=== PATIENT | female | born 1935 | race Caucasian/White ===

== ENCOUNTER → 2023-12-16 11:20 | Outpatient (REF) | payer MEDICARE, SELFPAY ==
[2023-12-16 12:26] LABS: % Basophils 0.7 % (0-2); % Eosinophils 2.3 % (0-6); % Immature Granulocytes 0.4 % (0-0.5); % Lymphocytes 10.1 % (20.5-51.1); % Monocytes 7.4 % (1.7-9.3); % Neutrophils 79.1 % (42.2-75.2); Absolute Basophils 0.1 10^3/uL (0-0.2); Absolute Eosinophils 0.2 10^3/uL (0-0.7); Absolute Lymphocytes 0.9 10^3/uL (1.2-3.4); Absolute Monocytes 0.7 10^3/uL (0.1-0.6); Absolute Neutrophils 7.3 10^3/uL (1.4-6.5); Hematocrit 37.5 % (37.0-47.0); Hemoglobin 12.3 g/dL (12.0-16.0); Mean Corp Hgb Conc. 32.8 g/dL (33.0-37.0); Mean Corpuscular Hgb 28.8 pg (27.0-31.0); Mean Corpuscular Volume 87.8 fL (81.0-99.0); Mean Platelet Volume 9.6 fL (7.4-10.4); Nucleated Red Blood Cells % 0 %; Platelet Count 285 10^3/uL (130-400); Red Blood Cell Count 4.27 10^6/uL (4.20-5.40); Red Cell Dist. Width 14.8 % (11.5-14.5); White Blood Cell Count 9.2 10^3/uL (4.8-10.8)
[2023-12-16 13:07] LABS: Microalbumin, Random Urine 7.1 mg/dl (0.6-1.7)
[2023-12-16 13:19] LABS: ALT (SGPT) 21 U/L (0-35); AST (SGOT) 22 U/L (14-36); Albumin 3.9 g/dl (3.5-5.0); Alkaline Phosphatase 85 U/L (38-126); Blood Urea Nitrogen 33 mg/dl (7-17); Calcium 9.8 mg/dl (8.4-10.2); Carbon Dioxide 27 mmol/L (22-30); Chloride 98 mmol/L (98-107); Glucose 120 mg/dl (70-99); HDL Cholesterol 70 mg/dl; LDL Cholesterol, Calculated 53 mg/dl; Potassium 5.1 mmol/L (3.5-5.1); Sodium 134 mmol/L (135-145); Total Cholesterol 138 mg/dl (50-199); Total Protein 6.5 g/dl (6.3-8.2); Triglyceride 77 mg/dl (10-149); Very Low Density Lipoprotein 15 mg/dl (0-30); eGFR 48.94
[2023-12-16 13:38] LABS: Glycohemoglobin (HgbA1c) 7.6 % (4.0-5.6)
[2023-12-16 13:49] LABS: TSH Reflex To Free T4 3.06 uIU/ml (0.47-4.68)
== END ==
LOC: REG 11:20
PROVIDERS: ATTENDING PHYSICIAN Registered Nurse
DX: I10 Essential (primary) hypertension (principal); E11.21 Type 2 diabetes mellitus with diabetic nephropathy; N18.2 Chronic kidney disease, stage 2 (mild); I48.0 Paroxysmal atrial fibrillation
CPT/HCPCS: 36415; 80053; 80061; 82043; 83036; 84443; 85025

== ENCOUNTER → 2024-01-29 13:33 | Outpatient (REF) | payer MEDICARE, SELFPAY | LOC: DHCBC MAIN 13:33 | PROVIDERS: ATTENDING PHYSICIAN Internal Medicine Cardiovascular Disease | DX: R06.09 Other forms of dyspnea (principal); I25.10 Atherosclerotic heart disease of native coronary artery without angina pectoris; I50.32 Chronic diastolic (congestive) heart failure | CPT/HCPCS: 93306 ==

== ENCOUNTER → 2025-02-16 09:53 | Outpatient (REF) | payer MEDICARE, SELFPAY | LOC: RCS 09:53 | PROVIDERS: ATTENDING PHYSICIAN Internal Medicine Cardiovascular Disease; FAMILY PHYSICIAN Student in an Organized Health Care Education/Training Program | DX: I50.32 Chronic diastolic (congestive) heart failure (principal); I48.0 Paroxysmal atrial fibrillation; I34.2 Nonrheumatic mitral (valve) stenosis; I71.21 Aneurysm of the ascending aorta, without rupture | CPT/HCPCS: 93306 ==

== ENCOUNTER 2025-09-06 20:37 | Inpatient (IN) | payer MEDICARE, SELFPAY ==
[2025-09-06] VITALS (30 sets, daily range): BP systolic 96–129; BP diastolic 60–85; BMI 27.2; BMI 25.7
[2025-09-06 13:45] LABS: Troponin I 0.032 ng/ml
[2025-09-06 13:48] LABS: INR 1.51; PT 18.4 Sec (11.4-14.6)
[2025-09-06 13:49] LABS: APTT 37.0 Sec (23.4-35.0)
[2025-09-06 13:53] LABS: Hematocrit 32.8 % (37.0-47.0); Hemoglobin 10.3 g/dL (12.0-16.0); Mean Corp Hgb Conc. 31.4 g/dL (33.0-37.0); Mean Corpuscular Volume 84.3 fL (81.0-99.0); Nucleated Red Blood Cells % 0 %; Platelet Count 384 10^3/uL (130-400); Red Cell Dist. Width 14.9 % (11.5-14.5)
[2025-09-06 14:19] LABS: ALT (SGPT) 27 U/L (0-35); AST (SGOT) 36 U/L (14-36); Albumin 4.2 g/dl (3.5-5.0); Alkaline Phosphatase 94 U/L (38-126); Blood Urea Nitrogen 36 mg/dl (7-17); Calcium 9.5 mg/dl (8.4-10.2); Carbon Dioxide 24 mmol/L (22-30); Chloride 101 mmol/L (98-107); Estimated Creatinine Clearance 28 ml/min; Glucose 177 mg/dl (70-99); Potassium 5.2 mmol/L (3.5-5.1); Sodium 129 mmol/L (135-145); Total Protein 6.9 g/dl (6.3-8.2); eGFR 39.55
--- NOTE | 2025-09-06 15:28 | ED.GENMED ---
History of Present Illness
<Gerard Easley MD, Resident - Last Filed: 09/06/25 16:10>
General
Chief Complaint: Heart Rate Problem
Source: patient and family
Time Seen by Provider: 09/06/25 15:05
History of Present Illness
History of Present Illness:
Patient is an 89-year-old female with PMH of A-fib on Xarelto and dofetilide who presented to the [place] ED for shortness of breath and dizziness since waking at 7:30 this morning. The shortness of breath and dizziness occurs with exertion.
Patient had similar episode of exertional dizziness and shortness of breath approximately 1 month ago, which self resolved. Patient was referred to the ED by her PCP today. Patient's A-fib is managed by her stitching machine feeder or offbearer, Dr. Harshad Hughes.
Last doses of Xarelto and dofetilide were last night and this morning, respectively. Patient has had prior attempted electrical cardioversions, though they were unsuccessful at keeping the patient out of A-fib. Patient denies having any chest
pain, palpitations, syncope, N/V/D, cough, recent illnesses or sick contacts, fever, or headache. No current symptoms while lying in bed.
Past History
<Gerard Easley MD, Resident - Last Filed: 09/06/25 16:10>
Past History
ED Past Medical History: Arrthythmia, HTN, Hypercholesterolemia, IDDM and Other (osteoarthritis, dizziness)
ED Past Surgical History: Orthopedic (Left total knee, right arthroscopy to remove bone fragments)
Social History
Tobacco: Non-smoker
Alcohol: None
Drug: None
Personal:
Living: alone
Employment: Retired
Review of Systems
<Gerard Easley MD, Resident - Last Filed: 09/06/25 16:10>
Review of Systems
Other source history: family
Constitutional: Denies fever
Respiratory: Reports trouble breathing (Exertional); Denies cough
Cardiac: Denies chest pain, palpitations or syncope
ABD/GI: Denies abdominal pain, nausea, vomiting or diarrhea
Neurological: Reports dizzy; Denies headache
Phy Exam
<Gerard Easley MD, Resident - Last Filed: 09/06/25 16:10>
Physical Exam
Physical Exam:
General: NAD. Conversant.
CV: S1, S2 noted. Irregularly irregular rhythm. Nonpitting edema in lower extremities, chronic per patient.
Pulm: CTAB. No wheezes or crackles.
GI: Soft, nontender. Nondistended.
Neuro: A&O x 3. No focal deficits. CN II through XII grossly intact.
Course
<Gerard Easley MD, Resident - Last Filed: 09/06/25 16:10>
Orders/Labs/Results
Orders:
Orders
09/06/25 12:10
Electrocardiogram (*1) Urgent
Reason for Study: Atrial Fibrillation
EKG- Treatment ONCE
09/06/25 13:04
Complete Blood Count/With Diff Urgent
Comprehensive Metabolic Panel Urgent
NT-proBNP Urgent
PT/INR [Prothrombin Time] Urgent
Is patient on Coumadin/Warfarin?: No
Comment: [email or web address]
PTT Urgent
Troponin I Urgent
09/06/25 15:35
CR Chest - 2 Views Urgent
Comment:
Reason For Exam: SOB
09/06/25 16:20
Propofol [Diprivan] 20 ml .ROUTE .STK-MED
09/06/25 19:18
Troponin I Urgent
Abnormal Lab Results
09/06/25
13:04
WBC 11.0 H 10^3/uL
(4.8-10.8)
RBC 3.89 L 10^6/uL
(4.20-5.40)
Hgb 10.3 L g/dL
(12.0-16.0)
Hct 32.8 L %
(37.0-47.0)
MCH 26.5 L pg
(27.0-31.0)
MCHC 31.4 L g/dL
(33.0-37.0)
RDW 14.9 H %
(11.5-14.5)
Abs Immat Gran (auto) 0.1 H 10^3/uL
(0-0.05)
Absolute Neuts (auto) 9.2 H 10^3/uL
(1.4-6.5)
Absolute Lymphs (auto) 0.9 L 10^3/uL
(1.2-3.4)
Absolute Monos (auto) 0.7 H 10^3/uL
(0.1-0.6)
Neutrophils % 82.9 H %
(42.2-75.2)
Lymphocytes % 7.9 L %
(20.5-51.1)
PT 18.4 H Sec
(11.4-14.6)
APTT 37.0 H Sec
(23.4-35.0)
Sodium 129 L mmol/L
(135-145)
Potassium 5.2 H mmol/L
(3.5-5.1)
BUN 36 H mg/dl
(7-17)
Creatinine 1.3 H mg/dL
(0.6-1.0)
Glucose 177 H mg/dl
(70-99)
09/06/25 13:04
09/06/25 13:04
Vital Signs
Initial and Last Documented VS:
Initial Vital Signs
Temp Pulse Resp BP Pulse Ox
97.8 F 102 16 117/70 98
09/06/25 12:16 09/06/25 12:16 09/06/25 12:16 09/06/25 12:16 09/06/25 12:16
Last Documented Vital Signs
Temp Pulse Resp BP Pulse Ox
97.6 F 66 28 127/75 91
09/06/25 16:31 09/06/25 18:14 09/06/25 18:14 09/06/25 18:47 09/06/25 18:14
<Lana Hyatt, DO - Last Filed: 09/06/25 19:26>
Orders/Labs/Results
Orders:
Orders
09/06/25 12:10
Electrocardiogram (*1) Urgent
Reason for Study: Atrial Fibrillation
EKG- Treatment ONCE
09/06/25 13:04
Complete Blood Count/With Diff Urgent
Comprehensive Metabolic Panel Urgent
NT-proBNP Urgent
PT/INR [Prothrombin Time] Urgent
Is patient on Coumadin/Warfarin?: No
Comment: [email or web address]
PTT Urgent
Troponin I Urgent
09/06/25 15:35
CR Chest - 2 Views Urgent
Comment:
Reason For Exam: SOB
09/06/25 16:20
Propofol [Diprivan] 20 ml .ROUTE .STK-MED
09/06/25 19:18
Troponin I Urgent
Abnormal Lab Results
09/06/25
13:04
WBC 11.0 H 10^3/uL
(4.8-10.8)
RBC 3.89 L 10^6/uL
(4.20-5.40)
Hgb 10.3 L g/dL
(12.0-16.0)
Hct 32.8 L %
(37.0-47.0)
MCH 26.5 L pg
(27.0-31.0)
MCHC 31.4 L g/dL
(33.0-37.0)
RDW 14.9 H %
(11.5-14.5)
Abs Immat Gran (auto) 0.1 H 10^3/uL
(0-0.05)
Absolute Neuts (auto) 9.2 H 10^3/uL
(1.4-6.5)
Absolute Lymphs (auto) 0.9 L 10^3/uL
(1.2-3.4)
Absolute Monos (auto) 0.7 H 10^3/uL
(0.1-0.6)
Neutrophils % 82.9 H %
(42.2-75.2)
Lymphocytes % 7.9 L %
(20.5-51.1)
PT 18.4 H Sec
(11.4-14.6)
APTT 37.0 H Sec
(23.4-35.0)
Sodium 129 L mmol/L
(135-145)
Potassium 5.2 H mmol/L
(3.5-5.1)
BUN 36 H mg/dl
(7-17)
Creatinine 1.3 H mg/dL
(0.6-1.0)
Glucose 177 H mg/dl
(70-99)
09/06/25 13:04
09/06/25 13:04
Vital Signs
Initial and Last Documented VS:
Initial Vital Signs
Temp Pulse Resp BP Pulse Ox
97.8 F 102 16 117/70 98
09/06/25 12:16 09/06/25 12:16 09/06/25 12:16 09/06/25 12:16 09/06/25 12:16
Last Documented Vital Signs
Temp Pulse Resp BP Pulse Ox
97.6 F 66 28 127/75 91
09/06/25 16:31 09/06/25 18:14 09/06/25 18:14 09/06/25 18:47 09/06/25 18:14
Procedures
<Lana Hyatt DO - Last Filed: 09/06/25 19:26>
Cardioversion
Indication:: Afib
Performed by:: Lana Hyatt DO
Synchronized?: Yes
Energy Used: 200 joules
Number of attempts: 1
Successful?: Yes
Complications: none
ASA Risk Score: Class II
Any reaction or bad outcome to prior sedation/anesthesia?: No history of a reaction
Sedation level to be attained: moderate
Chart and allergies reviewed: Yes
Patient reassessed prior to sedation: Yes
Time out completed at (validating right patient & procedure): 16:50
History of difficult intubation: No
Airway free of obstruction: Yes
Patient has a gag reflex: Yes
Patient is able to open mouth: Yes
Patient has no dentures: Yes
Patient has no loose teeth: Yes
Medication administered by Provider during Moderate Sedation: IV Propofol (mg)
Total dose administered: 40
Time drug administered: 16:51
Start Time: 16:51
Stop Time: 17:05
<Gerard Easley MD, Resident - Last Filed: 09/06/25 16:10>
MDM/Problems Addressed
Differential Diagnosis Includes:
A-fib w/ RVR
Atrial flutter
Pulmonary embolism
Heart failure exacerbation
MDM/Problems Addressed:
Assessment: Patient is an 89-year-old female with PMH of A-fib on Xarelto and dofetilide who presented with exertional dyspnea and dizziness. On presentation, EKG shows A-fib with RVR (104 BPM), with labs showing an elevated proBNP (4660), troponin
0.032, mild hyponatremia (129), mild leukocytosis (WBCs 11.0), and mild anemia (Hgb 10.3).
Plan:
#A-fib with RVR
-Diagnostic:
EKG: A-fib with RVR (104)
Labs: CBC, CMP, proBNP, troponin, coags
Imaging: CXR
-Therapeutic:
Cardiology consulted
Plan for attempted electrical cardioversion
<Gerard Easley MD, Resident - Last Filed: 09/06/25 16:10>
*Pulse Oximetry
SaO2: 97
Oxygen Mode of Delivery: Room air
Patient hypoxic: no
*Critical Care Note
Total Time (30-74mins, 75-104mins- exclusive of procedures): Not Applicable
ED Attending Note
<Gerard Easley MD, Resident - Last Filed: 09/06/25 16:10>
-
Portions of this chart may have been created with voice recognition software.� Occasional wrong word or��sound alike� substitutions may have occurred due to the inherent limitations of voice recognition software.
<Lana Hyatt DO - Last Filed: 09/06/25 19:26>
ED Attending Note
Patient seen and examined by attending physician: Yes
I performed the substantive portion of visit, reviewed & personally made and approve the management plan that is documented in note by myself or STEPHAN.: Yes
I performed a history and physical exam of patient and discussed management with resident, I reviewed resident's note and agree with documented findings and plan of care.: Yes
ED Attending Note:
89-year-old female with history of atrial fibrillation on Tikosyn and Xarelto presenting to the emergency department for dizziness and shortness of breath with exertion. Patient reports symptoms started this morning when she woke up. She went to
see her doctor, noted that she was in A-fib and prompted to come to the hospital. Patient also with history of high blood pressure. Patient follows with Dr. Hughes from cardiology. Notes that she has not had any issues with her atrial
fibrillation for several years since she has been on the Tikosyn. Reports history of failed cardioversions. Does note some lower extremity edema, however reports chronic. Denies any pain in her chest or shortness of breath at rest. Denies
additional acute medical complaints
Vital signs on arrival significant for tachycardia. On exam patient is resting comfortably, no acute distress. No increased work of breathing, lungs clear to auscultation. Heart rate is irregularly irregular and EKG confirms atrial fibrillation.
Mild lower extremity edema, symmetric, nonpitting. Suspect the patient symptoms are secondary to her atrial fibrillation. No overt signs of congestive heart failure. Labs obtained prior to my assessment, show mild hyponatremia. Did discuss with
cardiology, recommending cardioversion. Will attempt.
19:00 -patient had successful cardioversion, now in sinus rhythm. EKG however does show some interval changes from prior, with some T wave inversions inferiorly. BNP is also slightly elevated and chest x-ray shows some signs of pulmonary edema.
Concern for possible component of heart failure which could also be contributing to patient's shortness of breath. Will administer Lasix and plan for admission for cardiac monitoring cardiac consultation
Discharge Plan
Departure
Prescriptions:
No Action
lovastatin 40 MG tablet
1 tab PO QPM
lisinopril 10 MG tablet
10 mg PO QPM
atenolol 50 MG tablet
50 mg PO DAILY Qty: 30 0RF
dofetilide 125 MCG capsule
125 mcg PO Q12 Qty: 60 2RF
apixaban [Eliquis] 5 MG tablet
5 mg PO BID Qty: 60 5RF
spironolactone 25 MG tablet
25 mg PO DAILY
furosemide 20 MG tablet
20 mg PO DAILY
insulin lispro protamin-lispro [Humalog Mix 75-25(U-100)Insuln] 100 UNIT/ML suspension
14 unit SC DAILY
insulin lispro protamin-lispro [Humalog Mix 75-25(U-100)Insuln] 100 UNIT/ML suspension
12 unit SC QPM
Referrals:
Rayne Medrano DO [Family Provider, Family Practice]
Interventions
Interventions:
*Risk Screen - Suicide Last Done: 09/06/25 12:16
*General Assessment Last Done: 09/06/25 12:52
*Neglect/Abuse Screening Last Done: 09/06/25 12:16
*ED- Fall Risk Assessment Last Done: 09/06/25 12:52
*ED COVID-19 Vaccine History Last Done: 09/06/25 12:52
*ED Influenza Vaccine History Last Done: 09/06/25 12:52
ED- Cardiac Assessment Last Done: 09/06/25 12:52
ED- Pulmonary Assessment Last Done: 09/06/25 12:52
Discharge Date and Time
Print Language: ICELANDIC
[2025-09-06] MEDS: LASIX 40 MG IV (19:35)
[2025-09-06 20:03] LABS: Glucose - Point of Care 174 mg/dl (70-99)
--- NOTE | 2025-09-06 20:06 | HPS.HSE ---
Family Physician
-
Family Physician: Rayne Medrano
Chief Complaint
-
shortness of breath
History of Present Illness
89-year-old female past medical history of atrial fibrillation on Xarelto, HFpEF, hypertension, diabetes, iron deficiency anemia, hyperlipidemia, chronic kidney disease presenting with shortness of breath and dizziness since waking up this morning
occurring with exertion. Ongoing for few days. She had similar symptoms a month ago which self resolved. She was referred to the emergency room by his primary care physician today. Her forensic ballistics expert is Dr. Marylu Hughes. She has had prior
attempted electrical cardioversions that were unsuccessful keeping patient out of A-fib. She denies any chest pain or palpitations or passing out, cough, recent illness or sick contacts, fever or headache. She has lost weight recently. No
swelling.
Her blood sugars have recently been volatile. Blood sugars around midnight have been close to 60s and blood sugars in the daytime peak around 250. She has an appoint with her primary next week to discuss transitioning to long-acting insulin with
bolus insulin.
She denies smoking or alcohol use.
Medical History
Past Medical History
Past Medical History: Reports Other (atrial fibrillation on Xarelto, HFpEF, hypertension, diabetes, iron deficiency anemia, hyperlipidemia, chronic kidney disease)
Past Surgical History: Reports Other (Left total knee, right arthroscopy to remove bone fragments)
Social History
Tobacco: Non-smoker
Alcohol: None
Drug: None
Family History
Family History: Not pertinent
Allergies / Home Medications
Allergies reflects when Allergies were last updated in [email or web address].
Home Medications with original date entered in [email or web address]
Allergy/Medication List:
Allergies
Allergy/AdvReac Type Severity Reaction Status Date / Time
No Known Allergies Allergy Verified 08/22/23 15:24
Home Medications
lisinopril 10 mg tablet 10 mg PO QPM 02/11/12
lovastatin 40 mg tablet 1 tab PO QPM 02/11/12
atenolol 50 mg tablet 50 mg PO DAILY #30 tabs 09/19/16
apixaban 5 mg tablet (Eliquis) 5 mg PO BID #60 tabs 11/28/16
dofetilide 125 mcg capsule 125 mcg PO Q12 #60 caps 11/28/16
furosemide 20 mg tablet 20 mg PO DAILY 01/27/18
insulin lispro protamine-lispro 100 unit/mL (75-25) subcutaneous susp (Humalog Mix 75-25(U-100)Insuln) 12 unit SC QPM 01/27/18
insulin lispro protamine-lispro 100 unit/mL (75-25) subcutaneous susp (Humalog Mix 75-25(U-100)Insuln) 14 unit SC DAILY 01/27/18
spironolactone 25 mg tablet 25 mg PO DAILY 01/27/18
Review of Systems
-
History Source: Patient
A 12 point ROS was completed and negative except as noted: Yes
Constitutional: Reports No Symptoms
EENT: Reports No Symptoms
Respiratory: Reports No Symptoms
Cardiac: Reports No Symptoms
Abdomen/GI: Reports No Symptoms
: Reports No Symptoms
Musculoskeletal: Reports No Symptoms
Skin: Reports No Symptoms
Neurological: Reports No Symptoms
Endocrine: Reports No Symptoms
Hematologic/Lymphatic: Reports No Symptoms
Psych: Reports No Symptoms
Physical Exam
Vital Signs
Vital Signs
Temp Pulse Resp BP Pulse Ox
97.6 F 72 28 111/71 91
09/06/25 16:31 09/06/25 19:35 09/06/25 18:14 09/06/25 19:35 09/06/25 18:14
Physical Exam
General: Well Developed, Well Nourished and No Apparent Distress
HEENT: NormoCephalic, Moist mucous membranes and Atraumatic
Respiratory: Clear
Cardiac: S1/S2 and Regular Rhythm; No Murmur or Rub
GI: Soft, Non Tender, Non Distended and Normal Bowel Sounds; No Organomegaly
Rectal: Deferred by Provider
Musculoskeletal: No Clubbing, No Cyanosis and No Edema
Skin: No Rash
Neuro: Nonfocal/grossly intact
Laboratory Results
-
09/06/25 13:04
09/06/25 13:04
Laboratory Results
PT 18.4 Sec (11.4-14.6) H 09/06/25 13:04
INR 1.51 09/06/25 13:04
APTT 37.0 Sec (23.4-35.0) H 09/06/25 13:04
Total Bilirubin 0.7 mg/dl (0.2-1.3) 09/06/25 13:04
AST 36 U/L (14-36) 09/06/25 13:04
ALT 27 U/L (0-35) 09/06/25 13:04
Alkaline Phosphatase 94 U/L (38-126) 09/06/25 13:04
Troponin I 0.032 ng/ml 09/06/25 13:04
Data Reviewed
-
Lab Data: Labs Reviewed by me
Old Records: Reviewed
Impression/Plan
-
IMPRESSION:
PLAN:
# Atrial fibrillation with RVR
- initial EKG showed atrial fibrillation with heart rate 104
- Status post cardioversion which was successful but repeat EKG shows subtle inferior T wave inversions
- Troponin 0.032, continue to trend
-Continue atenolol
- Continue Eliquis
# Acute HFpEF exacerbation
- Chest x-ray shows moderate symmetrically increased interstitial markings and mild ground glass opacity in the lungs possibly acute interstitial/alveolar cardiogenic pulm edema or inflammatory interstitial pneumonitis, moderate chronic pulmonary
arterial hypertension, mild cardiomegaly
- Cardiac BNP 4600
- Check I's and O's, daily weight
- 40 IV Lasix daily
-Continue spironolactone
-Continue atenolol
- Cardiology consulted
# Volatile blood sugars
# Type 2 diabetes
-Normally takes 16 units daytime, 12 units at evening
- Blood sugars at midnight have been around 60 and blood sugars in the daytime have been up to 250
- Needs to transition to long-acting insulin with short acting
-Change to Lantus 12 units with insulin sliding scale
Mild to moderate mitral regurgitation
Essential hypertension
- Continue lisinopril
Iron deficiency anemia
Hyperlipidemia
- Continue statin
Chronic kidney disease
- Renal function at baseline
DNR/DNI
DVT prophylaxis-Eliquis
Cardiac diet
[2025-09-06 20:13] LABS: Troponin I 0.025 ng/ml
[2025-09-06 22:09] LABS: Glucose - Point of Care 237 mg/dl (70-99)
[2025-09-06] MEDS: LANTUS 0.12 UNITS SC (22:41)
[2025-09-06 23:03] LABS: Troponin I 0.030 ng/ml
--- NOTE | 2025-09-07 00:27 | PTCARENOTE ---
Received pt @ 2144 from ED. AAOx3, T- 97.7, HR 79, RR 22, BP 129/68, Pox 85%-- initiated 2L NC and O2 increased to 98% over time. Due to Pox and Lasix given @ 1929-- purewick initiated for evening. CHF packet given. Discussed plan of care. Pt
verbalizes understanding. Call pruitt within reach.
--- NOTE | 2025-09-07 02:18 | DOWNTIME ---
There was a [employer] Client Install Technician Downtime on 09/07/2025 from 0100 to 09/07/2025 at 0215. Downtime documentation of patient's care, including medication administrations, has been reconciled in the electronic record per guidelines. Refer to the
patient's paper chart under the miscellaneous tab to see printed paper medication records and downtime forms.
[2025-09-07 03:30] VITALS: BP 120/79
[2025-09-07 03:46] LABS: Hematocrit 30.2 % (37.0-47.0); Hemoglobin 9.6 g/dL (12.0-16.0); Mean Corp Hgb Conc. 31.8 g/dL (33.0-37.0); Mean Corpuscular Volume 85.6 fL (81.0-99.0); Nucleated Red Blood Cells % 0 %; Platelet Count 313 10^3/uL (130-400); Red Cell Dist. Width 14.9 % (11.5-14.5)
[2025-09-07 04:11] LABS: ALT (SGPT) 21 U/L (0-35); AST (SGOT) 21 U/L (14-36); Albumin 3.4 g/dl (3.5-5.0); Alkaline Phosphatase 74 U/L (38-126); Blood Urea Nitrogen 36 mg/dl (7-17); Calcium 9.0 mg/dl (8.4-10.2); Carbon Dioxide 24 mmol/L (22-30); Chloride 107 mmol/L (98-107); Estimated Creatinine Clearance 30 ml/min; Glucose 113 mg/dl (70-99); Potassium 4.6 mmol/L (3.5-5.1); Sodium 136 mmol/L (135-145); Total Protein 5.8 g/dl (6.3-8.2); eGFR 43.54
[2025-09-07 04:28] LABS: Troponin I 0.036 ng/ml
--- NOTE | 2025-09-07 05:55 | PTCARENOTE ---
Pt rested quietly throughout the night. Eyes closed with rhythmic breathing. Able to wean O2 off around 0400 as patient was statting in the mid 90s. There were a few times the patient flipped back and forth from NSR to AFib. Pt is currently in NSR.
[2025-09-07 07:35] VITALS: BP 118/77
[2025-09-07] MEDS: LASIX 40 MG IV (08:02)
[2025-09-07] MEDS: NOVOLOG FLEXPEN-LOW RESISTANCE SC (08:12)
[2025-09-07 08:18] LABS: Glucose - Point of Care 108 mg/dl (70-99)
[2025-09-07 08:39] LABS: Glycohemoglobin (HgbA1c) 7.1 % (4.0-5.6)
--- NOTE | 2025-09-07 09:30 | W.PN.HOSP.TC ---
Today's Communication/Plan
-
see bold
Assessment / Plan
Assessment / Plan
HPI: 89-year-old female past medical history of atrial fibrillation on Xarelto, HFpEF, hypertension, diabetes, iron deficiency anemia, hyperlipidemia, chronic kidney disease presenting with shortness of breath and dizziness since waking up this
morning occurring with exertion. Ongoing for few days. She had similar symptoms a month ago which self resolved. She was referred to the emergency room by his primary care physician today. Her retail assistant store manager is Dr. Marylu Hughes. She has had
prior attempted electrical cardioversions that were unsuccessful keeping patient out of [facility]. She denies any chest pain or palpitations or passing out, cough, recent illness or sick contacts, fever or headache. She has lost weight recently. No
swelling.
# Atrial fibrillation with RVR
- Initial EKG showed atrial fibrillation with heart rate 104
- Status post cardioversion which was successful but repeat EKG shows subtle inferior T wave inversions
- Appreciate cardiology input, continue Tikosyn, Xarelto,
# Acute HFpEF exacerbation
- Chest x-ray shows moderate symmetrically increased interstitial markings and mild ground glass opacity in the lungs possibly acute interstitial/alveolar cardiogenic pulm edema or inflammatory interstitial pneumonitis, moderate chronic pulmonary
arterial hypertension, mild cardiomegaly
- Cardiac BNP 4600
- Continue Lasix 40 mg IV daily, urinal lactone 12.5 mg daily, lisinopril 5 mg daily
# Volatile blood sugars
# Type 2 diabetes
- Normally takes 16 units daytime, 12 units at evening
- Blood sugars at midnight have been around 60 and blood sugars in the daytime have been up to 250
- Needs to transition to long-acting insulin with short acting
- Change to Lantus 12 units with insulin sliding scale, hemoglobin A1c 7.1
Mild to moderate mitral regurgitation
Essential hypertension
- Continue lisinopril
Iron deficiency anemia
Hyperlipidemia
- Continue statin
Chronic kidney disease
- Renal function at baseline
DVT prophylaxis�Xarelto
DNR
Updated daughters at bedside 09/07
Total time spent to see the patient on the floor, examine the patient, review data and lab results, discuss treatment plan with patient, nursing staff around 45 minutes.
Physical Exam
General: No acute distress
HEENT: Normocephalic, Atraumatic, EOMI, MMM
Respiratory: Clear to Auscultation bilaterally
Cardiac: Normal S1/S2, Regular Rate and Rhythm
GI: Soft, Nontender, Nondistended, Normal Bowel Sounds
Extremities: No Clubbing, Cyanosis
Bilateral lower extremity edema noted
Neuro: Nonfocal/Grossly Intact
Anticipated Discharge: Within 24 hours
Subjective/Interval History
-
Date of Service: September 07, 2025
Patient feels well after her cardioversion. Shortness of breath has resolved. Denies chest pain. No fever, no vomiting.
Objective Data
-
Labs:
Laboratory Results
09/07/25
03:38
WBC 8.5
Hgb 9.6 L
Hct 30.2 L
Plt Count 313
Sodium 136
Potassium 4.6
Chloride 107
Carbon Dioxide 24
BUN 36 H
Creatinine 1.2 H
Glucose 113 H
Calcium 9.0
Total Bilirubin 0.4
AST 21
ALT 21
Alkaline Phosphatase 74
Vital Signs:
Vital Signs
Temp Pulse Resp BP Pulse Ox
98.3 F 78 16 120/79 93
09/07/25 07:35 09/07/25 05:45 09/07/25 07:35 09/07/25 03:30 09/07/25 07:35
I&O
09/06/25 09/07/25 09/08/25
06:59 06:59 06:59
Output Total 675 / 675
Balance -675 / -675
--- NOTE | 2025-09-07 09:41 | CM ---
Addendum entered by Carly Cates 09/07/25 13:29:
Telephone call to [facility] to check on co-pay for Farxiga and Jardiance. Her co-pay for Jardiance is $47.00 a month and Jardiance is also $47.00 a month.
Original Note:
Reviewed chart. Met with Mrs. Smith and her family to review discharge plans. She states prior to admission she resides alone in a two story home with three steps to enter. She states states she has a first floor set-up. She states prior to
admission she was independent with ambulation and adls. She states she has a single point cane at home but currently not using it. She states she has a prescription plan and uses [facility]. Will need to see her current functional level to see
if she will have any skilled care needs. Medical work-up in progress. The discharge plan is to return home when medically stable.
--- NOTE | 2025-09-07 11:01 | CON.CAR ---
Addendum entered and electronically signed by Vidal Smith MD 09/07/25 12:18:
I saw and evaluated the patient, and I provided the substantive portion of the medical decision making.
I reviewed and agree with the note by MICAH Allen and it accurately reflects our care.
I personally performed the medical decision making of the this encounter and my assessment and plan is below:
Symptomatic rapid PAF. Last Afib was about 8 yrs ago. No clear precipitant. Hope AFib will not quickly recur. Improving with mandaeism of sinus and gentle diuresis. Suspect will be ready for home tomorrow. Will update echo. Last ischemic eval
2018 and was negative. No known CAD.
Original Note:
Consultation
Consultation Request
Date/Time Consultation Requested: 09/06/25 2731
Date/Time Consultation Performed: 09/07/25 1030
Requesting Provider: Dr. Saeed
Performing Provider: Cait OBRIEN for Dr. Smith
Reason for Consultation: AFIB, CHF
Medical History
-
Chief Complaint: SOB, dizziness
History of Present Illness:
89 y/o female (patient of Dr. Hughes) with HFpEF, AFIB on Tikosyn and Xarelto, hypertension, DM2, mild to moderate mitral regurgitation and stenosis, dilated ascending aorta (not on BB due to bradycardia per OP notes), and CKD3B who is here for
evaluation since she woke up yesterday AM and felt SOB and dizziness. She went to her PCP and was seen to be in AFIB with RVR. She was cardioverted to SR in the ER. Last dose Xarelto was night of 09/05/25. Last dose of dofetilide was AM 09/06/25.
She was kept in the hospital since there was felt to be some CHF and she is s/p IV diuresis. She has chronic LE, which is worse than usual. EKG with ST/T abnormalities anterior and inferior, similar to previous; will repeat today.
Past Medical History
Past Medical History: Arrhythmias, CHF, HTN, NIDDM, Valvular Disease and Other (as above)
Social History
Tobacco: Non-Smoker
Family History
Family History: Reviewed & Not Pertinent
Allergies / Home Medications
Allergy/AdvReac Type Severity Reaction Status Date / Time
No Known Allergies Allergy Verified 08/22/23 15:24
Meds rec not yet done- nursing working on it,
But cardiac medicines include:
dofetilide 125 mcg PO BID
Xarelto 15 mg daily
furosemide 20 mg daily
lisinopril 5 mg daily
lovastatin 40 mg PO daily
spironolactone 12.5 mg PO daily
Review of Systems
-
History Source: Patient
All other systems: Negative unless noted
Respiratory: Trouble Breathing
Neurological: Dizzy
Physical Exam
Vital Signs
Temp Pulse Resp BP Pulse Ox
98.3 F 81 16 118/77 93
09/07/25 07:35 09/07/25 07:45 09/07/25 07:35 09/07/25 07:35 09/07/25 07:35
Lab Results
09/07/25 03:38
09/07/25 03:38
Troponin I 0.036 ng/ml H* 09/07/25 03:38
Mbu-X-Xaoyzwdpahh Pept 4660 pg/ml 09/06/25 13:04
Physical Exam
General: Well Developed, Well Nourished and No Apparent Distress
HEENT: Normocephalic and Anicteric
Respiratory: Clear and Non Labored Respirations
Cardiac: Regular Rhythm
Musculoskeletal: Edema (+1-2 BLE edema)
Skin: Warm and Dry
Neuro: AO x 3
Psych: Calm
Impression / Plan
-
AFIB:
-has been paroxysmal, but came in with symptomatic AFIB with RVR
-now s/p CV 09/06/25 in ER- currently in SR; EKG with ST/T abnormalities in anterior and inferior leads- similar overall to some of her previous EKGs. Will repeat today.
-maintained on dofetilide 125 mcg PO Q 12 H and Xarelto 15 mg PO daily- she was not ordered these (last dose Xarelto was night of 09/05/25. Last dose of dofetilide was AM 09/06/25) and I will give doses now considering that she came in for AFIB
with RVR and had cardioversion.
[place]-ed-dgwypbv HFpEF:
-BNP 4660, CXR suggestive excess fluid, LE edema worse than usual. In setting of above.
-continue IV Lasix today and reassess in AM- this requires intensive monitoring
-leon SGLT2I to see if affordable, but may hold off as CHF exacerbation likely just related to AFIB
-update echo
Abnormal troponin:
-acute, non-ischemic myocardial injury in setting of AFIB with RVR and CHF exacerbation
-can trend to peak
-obtain echo
HTN:
-continue usual meds and monitor with diuresis
Data:
Echo 02/16/25: Normal biventricular size and systolic function without regional wall motion abnormality. Aortic sclerosis without stenosis. Lambl's excrescence is noted. Dense MAC with dense calcification of all of the mitral valve structures. Mild to
moderate mitral stenosis. Mild to moderate mitral regurgitation. Estimated PASP 50-55 mmHg. Ascending aorta dilatation. Ascending aorta measures 4.1 cm.
Data Reviewed
-
EKG: Tracing Personally Visualized and interpreted (SR 60 BPM with anterior and inferior t wave inversions- similar to OP EKG from 08/03/25)
Radiology: Report Reviewed by me (CXR 09/06/25: Moderate symmetrically increased interstitial markings and mild ground-glass opacity in the lungs. Moderate chronic pulmonary arterial hypertension, mild cardiomegaly.)
Medical Tests (Nuc Med, Echo etc): Report Reviewed by me (echo as noted)
Labs: Labs Reviewed by me
[2025-09-07] MEDS: TIKOSYN 125 MCG PO ×2 (11:08→21:42)
[2025-09-07] MEDS: XARELTO 15 MG PO (11:08)
[2025-09-07 11:35] VITALS: BP 106/68
[2025-09-07 12:44] LABS: Glucose - Point of Care 193 mg/dl (70-99)
[2025-09-07] MEDS: NOVOLOG FLEXPEN-LOW RESISTANCE 1 UNITS SC (12:52)
[2025-09-07 13:07] LABS: Troponin I 0.030 ng/ml
[2025-09-07 16:53] LABS: Glucose - Point of Care 263 mg/dl (70-99)
[2025-09-07] MEDS: NOVOLOG FLEXPEN-LOW RESISTANCE 3 UNITS SC (16:53)
[2025-09-07 16:54] VITALS: BP 113/75
--- NOTE | 2025-09-07 17:00 | PTCARENOTE ---
Pt received this am in SR, rate in the 70's to 90's. Denies any pain or sob. Room air sat 96%. OOB to the chair and Br, gait steady. Ambulated in the [place] and to the lounge with her daughters. Denies any sob with exertion.
[2025-09-07] MEDS: NOVOLOG FLEXPEN 3 UNITS SC (18:00)
[2025-09-07 18:47] VITALS: BP 130/73
[2025-09-07] MEDS: LANTUS 0.12 UNITS SC (21:41)
[2025-09-07 21:43] LABS: Glucose - Point of Care 105 mg/dl (70-99)
[2025-09-07 21:46] VITALS: BP 129/92
--- NOTE | 2025-09-07 23:32 | PTCARENOTE ---
Received pt @ change of shift. AAOx3, VSS-- NSR w/ PVCs on monitor. Occ. flips into Afib momentarily and then back. Ambulating to bathroom independently. Discussed plan of care. Pt verbalizes understanding. Call pruitt within reach.
[2025-09-08 04:24] VITALS: BP 110/75
[2025-09-08 04:57] LABS: Hematocrit 30.1 % (37.0-47.0); Hemoglobin 9.4 g/dL (12.0-16.0); Mean Corp Hgb Conc. 31.2 g/dL (33.0-37.0); Mean Corpuscular Volume 85.8 fL (81.0-99.0); Platelet Count 319 10^3/uL (130-400); Red Cell Dist. Width 15.0 % (11.5-14.5)
[2025-09-08 05:21] LABS: Blood Urea Nitrogen 39 mg/dl (7-17); Calcium 9.1 mg/dl (8.4-10.2); Carbon Dioxide 25 mmol/L (22-30); Chloride 104 mmol/L (98-107); Estimated Creatinine Clearance 30 ml/min; Glucose 107 mg/dl (70-99); Potassium 4.5 mmol/L (3.5-5.1); Sodium 136 mmol/L (135-145); eGFR 43.54
[2025-09-08 06:00] VITALS: BMI 25.1
--- NOTE | 2025-09-08 06:23 | PTCARENOTE ---
Pt rested quietly all night with eyes closed and steady breathing. Ambulated to bathroom independently when needed. Had two small runs of tachycardia this morning, but returned to NSR.
[2025-09-08 07:48] VITALS: BP 121/80
[2025-09-08] MEDS: LASIX 40 MG IV (07:57)
[2025-09-08] MEDS: NOVOLOG FLEXPEN 3 UNITS SC ×2 (07:58→12:23)
[2025-09-08] MEDS: ALDACTONE 12.5 MG PO (07:59)
[2025-09-08] MEDS: TIKOSYN 125 MCG PO (07:59)
[2025-09-08] MEDS: ZESTRIL 5 MG PO (07:59)
[2025-09-08 08:00] LABS: Glucose - Point of Care 107 mg/dl (70-99)
[2025-09-08] MEDS: NOVOLOG FLEXPEN-LOW RESISTANCE SC (08:00)
--- NOTE | 2025-09-08 09:31 | W.PN.HOSP.TC ---
Today's Communication/Plan
-
Cleared by cardiology for discharge today
Assessment / Plan
Assessment / Plan
HPI: 89-year-old female past medical history of atrial fibrillation on Xarelto, HFpEF, hypertension, diabetes, iron deficiency anemia, hyperlipidemia, chronic kidney disease presenting with shortness of breath and dizziness since waking up this
morning occurring with exertion. Ongoing for few days. She had similar symptoms a month ago which self resolved. She was referred to the emergency room by his primary care physician today. Her shovel mechanic is Dr. Marylu Hughes. She has had
prior attempted electrical cardioversions that were unsuccessful keeping patient out of [facility]. She denies any chest pain or palpitations or passing out, cough, recent illness or sick contacts, fever or headache. She has lost weight recently. No
swelling.
# Atrial fibrillation with RVR
- Initial EKG showed atrial fibrillation with heart rate 104
- Status post cardioversion which was successful but repeat EKG shows subtle inferior T wave inversions
- Appreciate cardiology input, continue Tikosyn, Xarelto
- Cleared by cardiology for discharge today
# Acute HFpEF exacerbation
- Chest x-ray shows moderate symmetrically increased interstitial markings and mild ground glass opacity in the lungs possibly acute interstitial/alveolar cardiogenic pulm edema or inflammatory interstitial pneumonitis, moderate chronic pulmonary
arterial hypertension, mild cardiomegaly
- Cardiac BNP 4600
- Resolved status post IV Lasix, cardiology recommends discharge on her previous home Lasix dose of 20 mg daily
- Continue spironolactone 12.5 mg daily, lisinopril 5 mg daily
# Volatile blood sugars
# Type 2 diabetes
- Normally takes 16 units daytime, 12 units at evening
- Blood sugars at midnight have been around 60 and blood sugars in the daytime have been up to 250
- Needs to transition to long-acting insulin with short acting
- Patient agreeable for discharge on Lantus 12 units at bedtime, NovoLog 5 units with breakfast/lunch, 3 units with dinner
- Hemoglobin A1c 7.1
Mild to moderate mitral regurgitation
Essential hypertension
- Continue lisinopril
Iron deficiency anemia
Hyperlipidemia
- Continue statin
Chronic kidney disease
- Renal function at baseline
DVT prophylaxis�Xarelto
DNR
Updated daughter at bedside 09/08
Physical Exam
General: No acute distress
HEENT: Normocephalic, Atraumatic, EOMI, MMM
Respiratory: Clear to Auscultation bilaterally
Cardiac: Normal S1/S2, Regular Rate and Rhythm
GI: Soft, Nontender, Nondistended, Normal Bowel Sounds
Extremities: No Clubbing, Cyanosis
Bilateral lower extremity edema noted
Neuro: Nonfocal/Grossly Intact
Anticipated Discharge: Today
Subjective/Interval History
-
Date of Service: September 08, 2025
Patient reports feeling well. Denies chest pain, denies shortness of breath. No nausea, no vomiting. No abdominal pain. No fever.
Objective Data
-
Labs:
Laboratory Results
09/08/25
04:29
WBC 8.3
Hgb 9.4 L
Hct 30.1 L
Plt Count 319
Sodium 136
Potassium 4.5
Chloride 104
Carbon Dioxide 25
BUN 39 H
Creatinine 1.2 H
Glucose 107 H
Calcium 9.1
Vital Signs:
Vital Signs
Temp Pulse Resp BP Pulse Ox
97.8 F 84 20 121/80 94
09/08/25 07:48 09/08/25 07:48 09/08/25 07:48 09/08/25 07:48 09/08/25 07:48
I&O
09/07/25 09/08/25 09/09/25
06:59 06:59 06:59
Output Total 675 / 675 325 / 325
Balance -675 / -675 -325 / -325
--- NOTE | 2025-09-08 10:11 | W.PN.CD ---
Addendum entered and electronically signed by Rufus Kirkland MD 09/08/25 10:31:
Stable for discharge from a cardiology standpoint
Original Note:
Today's Communication / Plan
-
Patient feels well remains in sinus rhythm. Respiratory status stable on room air. Patient would like to go home. Issues reviewed with patient and daughters at bedside. Echo findings reviewed. Suspect patient had component of heart failure and
elevated PA pressures from baseline due to development of A-fib.
- Continue dofetilide at current dosing
- Continue Xarelto
- Continue Lasix.
- Patient and daughter will monitor daily weights and keep a diary of weights. If she is having any increase in weights then she will increase Lasix to 40 mg a day.-
- Although SGLT2 I can be considered I would hold off since patient is also maintained on insulin and has been having issues with managing her blood sugars including periods of hypoglycemia in the evenings. Patient has upcoming visit to have her
diabetes management reassessed.
Impression / Plan
-
AFIB:
-has been paroxysmal, but came in with symptomatic AFIB with RVR
-now s/p CV 09/06/25 in ER- currently in SR; EKG with ST/T abnormalities in anterior and inferior leads- similar overall to some of her previous EKGs. Will repeat today.
-maintained on dofetilide 125 mcg PO Q 12 H and Xarelto 15 mg PO daily- she was not ordered these (last dose Xarelto was night of 09/05/25. Last dose of dofetilide was AM 09/06/25) and I will give doses now considering that she came in for AFIB
with RVR and had cardioversion.
Hwbsv-qz-wosnhys HFpEF:
- Improved. No complaints of shortness of breath.
-BNP 4660, CXR suggestive excess fluid, LE edema worse than usual. In setting of above.
-continue IV Lasix today and reassess in AM- this requires intensive monitoring
- SGLT2i is a consideration but I would hold off at this point. Patient has diabetes maintained on insulin and has been having some issues with blood sugars including hypoglycemia in the evenings. Patient has planned follow-up with her provider
that is managing diabetes.
- Echocardiogram with normal left ventricular function patient has mitral annular calcification and mitral stenosis which has increased from the previous study also with severe pulmonary hypertension. PA pressure 85 mmHg. Which is increased from
the previous study with she had PA pressure 50 to 55 mmHg.
Abnormal troponin:
-acute, non-ischemic myocardial injury in setting of AFIB with RVR and CHF exacerbation
-can trend to peak
-obtain echo
HTN:
-continue usual meds and monitor with diuresis
Data:
Echo 02/16/25: Normal biventricular size and systolic function without regional wall motion abnormality. Aortic sclerosis without stenosis. Lambl's excrescence is noted. Dense MAC with dense calcification of all of the mitral valve structures. Mild to
moderate mitral stenosis. Mild to moderate mitral regurgitation. Estimated PASP 50-55 mmHg. Ascending aorta dilatation. Ascending aorta measures 4.1 cm.
Physical Exam
Vital Signs/Labs
Vital Signs
Temp Pulse Resp BP Pulse Ox
97.8 F 84 20 121/80 97
09/08/25 07:48 09/08/25 07:48 09/08/25 07:48 09/08/25 07:48 09/08/25 08:00
09/07/25 09/08/25 09/09/25
06:59 06:59 06:59
Actual Weight 65.7 kg 64.2 kg
09/08/25 04:29
09/08/25 04:29
PT 18.4 Sec (11.4-14.6) H 09/06/25 13:04
INR 1.51 09/06/25 13:04
APTT 37.0 Sec (23.4-35.0) H 09/06/25 13:04
09/06/25
13:04
Ezv-T-Clmkejygrem Pept 4660
LAB Results
09/06/25 09/06/25 09/06/25
13:04 19:32 22:33
Troponin I 0.032 0.025 0.030
09/07/25 09/07/25
03:38 12:26
Troponin I 0.036 H* 0.030
Physical Exam
Constitutional: No acute distress
Cardiovascular: Rhythm & rate is regular
Respiratory: Wheeze Absent and Rhonchi Absent
GI: Soft and Non tender
Neuro/Psych: Alert and Oriented
Data Reviewed
-
Date of Service: September 08, 2025
Medical Decision Making: Reviewed Test Results
EKG: Report Reviewed by me
Medical Tests (PFT, Pathology etc): Report Reviewed by me
Labs: Labs Reviewed by me
[2025-09-08 11:26] VITALS: BP 105/65
[2025-09-08 12:14] LABS: Glucose - Point of Care 255 mg/dl (70-99)
[2025-09-08] MEDS: NOVOLOG FLEXPEN-LOW RESISTANCE 3 UNITS SC (12:23)
--- NOTE | 2025-09-08 13:14 | W.DCSUMMARY ---
Discharge Summary
Discharge Data
Date of Admission: 09/06/25
Date of Discharge: 09/08/25
-
Pending Results: No
Hospital Course
Discharge diagnosis:
Atrial fibrillation with rapid ventricular response
Acute heart failure with a preserved ejection fraction
Type 2 diabetes with volatile blood sugars
Essential hypertension
Mild to moderate mitral regurgitation
Consults: Cardiology
Hospital course:
89-year-old female with a past medical history of atrial fibrillation on Xarelto, CHF, hypertension, and type 2 diabetes was admitted for atrial fibrillation with rapid ventricular response as well as acute heart failure with a preserved ejection
fraction. Patient felt short of breath, and went to her PCP, who then sent her to the ER. She was in rapid atrial fibrillation upon arrival, and she was cardioverted to normal sinus rhythm in the ER. She was seen in conjunction with cardiology,
and resumed on her home medications including Tikosyn and Xarelto.
For her acute heart failure with a preserved ejection fraction, she was diuresed with IV Lasix. She was then switched to her home Lasix dose of 20 mg daily.
Patient has type 2 diabetes, and was previously on Humalog mix 75�25, 16 units in the morning, 12 units in the evening. She reports having hypoglycemic episodes at midnight, with blood sugars in the 60s. She was agreeable to being converted to
basal and Premeal insulin. She will be discharged on glargine 12 units at bedtime, NovoLog 5 units with breakfast/lunch, and 3 units with dinner.
Patient is medically stable and cleared by cardiology for discharge. She needs to follow-up with her PCP in 1 week, and her usual director of technology in the office in 2-3 weeks.
Disposition: Home with home care
Discharge planning: Required 36 minutes
Discharge Plan
-
Patient Disposition: Home with Home Care
Discharge Diagnosis/Procedures: Atrial fibrillation with rapid ventricular response, acute heart failure with preserved ejection fraction
Condition: Good
Diet: 2 Gram Sodium
Activity: As tolerated
Driving Restrictions: As prior to admission
Activity Restrictions/Additional Instructions:
You need to take a special insulin called NovoLog before meals.
Please take NovoLog 5 units with breakfast and with lunch, 3 units with dinner.
Only take NovoLog insulin if you are eating, skip if you are not eating.
You will always give yourself Lantus once nightly.
Please follow-up with your family doctor in 1 week, and cardiology as scheduled.
Instructions: *CBC Heart Failure Instructions
Referrals:
[facility] [Outside] - in one to two days
Alysia Carmen NP [Specified Professional Personl, Cardiology] - 09/20/25 3:20 pm
Rayne Medrano DO [Family Provider] - in one week
Prescriptions:
New
insulin aspart U-100 [Novolog FlexPen U-100 Insulin] 100 unit/mL (3 mL) Insulin Pen
See Rx Instructions .ROUTE .COMPLEX Qty: 2 0RF
Rx Instructions:
Take 5 units with breakfast & lunch, take 3 units with dinner
insulin glargine [Lantus Solostar U-100 Insulin] 100 unit/mL (3 mL) Insulin Pen
12 unit SC HS Qty: 2 0RF
(DME) pen needle, diabetic [Maddie Pen Needle] 32 gauge x 5/32' Needle
Qty: 200 0RF
Rx Instructions:
1 box of 200 needles
refer to insulin instructions
Continued
lovastatin 40 MG tablet
1 tab PO QPM
furosemide 20 MG tablet
20 mg PO DAILY
dofetilide 125 MCG capsule
125 mcg PO Q12
Xarelto 15 mg Tablet
15 mg PO QPM
Changed
spironolactone 25 MG tablet
12.5 mg PO DAILY Qty: 0 0RF
lisinopril 10 MG tablet
5 mg PO QPM Qty: 0 0RF
Discontinued
Humalog Mix 75-25(U-100)Insuln 100 UNIT/ML suspension
16 unit SC DAILY
Humalog Mix 75-25(U-100)Insuln 100 UNIT/ML suspension
12 unit SC QPM
atenolol 50 MG tablet
50 mg PO DAILY
Eliquis 5 MG tablet
5 mg PO BID
Discharge Orders:
Discharge Patient (As Directed); Ordered 09/08/25
Ordered By: Pio Castañeda
Care Plan Goals
Care Plan Goals:
Problem: Readiness for enhanced knowledge related to diagnosis and treatment plan
Goal: Understand your diagnosis and treatment plan needs, including medications if applicable.
Instructions: Know your diagnosis, underlying causes and treatment plan options, including medications if applicable. Consult with your health care team to learn about your diagnosis and treatment plan, including medications if applicable.
Discharge Date and Time
Discharge Date/Time: 09/08/25 14:34
Print Language: KAZAKH
[2025-09-08] MEDS: XARELTO 15 MG PO (13:31)
--- NOTE | 2025-09-08 13:31 | CM ---
Reviewed chart. Met with Mrs. Smith and her daughter to review discharge plans. She states she is feeling better and may go home soon. We [facility] and she is agreeable to [facility]. Telephone call to [facility] to make the referral. Referral sent. Also reviewed co-pay for Farxiga and Jardiance. She states she is not starting that medication at this time. Prior to admission she resides alone in a two story home with three steps to enter. She has a
first floor set-up. Prior to admission she was independent with ambulation and adls. She has a single point cane at home but currently not using it.She has a prescription plan and uses [facility]. Will need to see her current functional
level to see if she will have any skilled care needs. Medical work-up in progress. The discharge plan is to return home with [facility] when medically stable.
[2025-09-08] MEDS: FLUZONE HIGH-DOSE 2025-26 0.5 ML IM (13:39)
--- NOTE | 2025-09-08 14:32 | PTCARENOTE ---
Pt received this am in SR, rate in the 70's. Denies any pain or sob. OOB ad rickey, gait steady. Room air sat 97%. Pt discharged to home with daughter. Discharge instructions given and reviewed with pt and her daughter with good understanding and all
questions answered.
--- NOTE | 2025-09-09 10:31 | W.HF.CON ---
Heart Failure
- LV Function
Left ventricular function study result: LV Ejection fraction >/= 50%
Ejection Fraction Percentage: 70-75
- ARNI
Patient already on ARNI: No
Heart Failure ARNI Not Indicated: LV Ejection Fraction >/= 40%
- ACEI/ARB
Patient already on ACEI/ARB: Yes
- Beta Jake
Patient already on Evidence Based Beta Jake: No
Heart Failure Evidence Based Beta Jake Not Indicated: LV Ejection Fraction > 40%
- Mineralocorticord Receptor Antagonist
Patient already on MRA: Yes
- SGLT-2 Inhibitor
Patient already on SGLT-2 Inhibitor: No
Heart Failure SGLT-2 Inhibitor Contraindication: Patient Refusal (hypoglycemia)
- Afib Anticoagulation
Patient already on Anticoagulation for Afib: Yes
- NYHA CHF Classification
NYHA CHF Classification Level: Class III - Symptoms w/ min exertion, interferes w/ nml daily activity
- ACC/AHA Stage
ACC/AHA Stage: Stage C: Symptomatic Heart Failure
== END 2025-09-08 14:34 | disposition home health service (06) | DRG 291 ==
LOC: IVU 20:37
PROVIDERS: Nurse Practitioner; Student in an Organized Health Care Education/Training Program; ADMITTING PHYSICIAN Hospitalist; ATTENDING PHYSICIAN Family Medicine; CONSULT PHYSICIAN Internal Medicine Cardiovascular Disease; EMERGENCY PHYSICIAN Student in an Organized Health Care Education/Training Program; FAMILY PHYSICIAN Family Medicine
DX: I13.0 Hypertensive heart and chronic kidney disease with heart failure and stage 1 through stage 4 chronic kidney disease, or unspecified chronic kidney disease (principal); I50.33 Acute on chronic diastolic (congestive) heart failure; E87.1 Hypo-osmolality and hyponatremia; I48.91 Unspecified atrial fibrillation; I5A Non-ischemic myocardial injury (non-traumatic); Z79.01 Long term (current) use of anticoagulants; E11.22 Type 2 diabetes mellitus with diabetic chronic kidney disease; D50.9 Iron deficiency anemia, unspecified; N18.32 Chronic kidney disease, stage 3b; Z66 Do not resuscitate; I48.0 Paroxysmal atrial fibrillation; I27.20 Pulmonary hypertension, unspecified; Z79.4 Long term (current) use of insulin; Z79.899 Other long term (current) drug therapy
CPT/HCPCS: 71046; 80048; 80053; 82962; 83036; 83880; 84484; 85025; 85027; 85610; 85730; 90662; 92960; 93005; 93306; 96374; 99152; 99285; G0008

== ENCOUNTER 2025-10-27 17:20 | Inpatient (IN) | payer MEDICARE, SELFPAY ==
[2025-10-27] VITALS (8 sets, daily range): BP systolic 106–133; BP diastolic 67–99; BMI 25.6; BMI 24.8
[2025-10-27 12:46] LABS: Hematocrit 30.4 % (37.0-47.0); Hemoglobin 9.5 g/dL (12.0-16.0); Mean Corp Hgb Conc. 31.3 g/dL (33.0-37.0); Mean Corpuscular Volume 78.4 fL (81.0-99.0); Nucleated Red Blood Cells % 0 %; Platelet Count 365 10^3/uL (130-400); Red Cell Dist. Width 16.2 % (11.5-14.5)
[2025-10-27 13:10] LABS: Troponin I 0.026 ng/ml
[2025-10-27 13:19] LABS: ALT (SGPT) 17 U/L (0-35); AST (SGOT) 18 U/L (14-36); Albumin 4.2 g/dl (3.5-5.0); Alkaline Phosphatase 82 U/L (38-126); Blood Urea Nitrogen 44 mg/dl (7-17); Calcium 9.5 mg/dl (8.4-10.2); Carbon Dioxide 21 mmol/L (22-30); Chloride 103 mmol/L (98-107); Glucose 252 mg/dl (70-99); Potassium 5.3 mmol/L (3.5-5.1); Sodium 133 mmol/L (135-145); Total Protein 6.9 g/dl (6.3-8.2); eGFR 39.55
--- NOTE | 2025-10-27 13:58 | ED.GENMED ---
History of Present Illness
General
Chief Complaint: Breathing Problem
Source: patient
Exam Limitations: none
Time Seen by Provider: 10/27/25 13:58
History of Present Illness
History of Present Illness:
89yoF with a history of atrial fibrillation on Xarelto, CHF, hypertension, hyperlipidemia, insulin-dependent diabetes, and chronic anemia presenting for evaluation of shortness of breath. Patient reports ongoing exertional dyspnea for the past
several weeks. She checked her pulse ox at home this morning and her oxygen saturation was in the 70s and she decided to come to the ED for evaluation. She denies any shortness of breath during initial exam or at rest and reports that her symptoms
are only with activity. She denies any worsening leg swelling, chest pain, fevers. She monitors her weights daily and her weight typically ranges between 140-143 pounds. She was 143 pounds this morning. Her buggyman is Dr. Hughes.
Past History
Past History
ED Past Medical History: Arrthythmia, HTN, Hypercholesterolemia, IDDM and Other (osteoarthritis, dizziness)
ED Past Surgical History: Orthopedic (Left total knee, right arthroscopy to remove bone fragments)
Social History
Tobacco: Non-smoker
Alcohol: None
Drug: None
Personal:
Living: alone
Employment: Retired
Phy Exam
General Physical Exam
General Presentation: well appearing and no apparent distress
General Skin: warm and dry
General Habitus: normal and elderly
General Mental: alert
ENT Exam
ENT Exam: normocephalic
Cardiovascular Exam
Cardiovascular Exam: regular rate/rhythm and other (1+ pitting edema to bilateral lower extremities)
Pulmonary Exam
Pulmonary Exam: no respiratory distress, no rhonchi, no wheezing and other (Bibasilar rales)
Neurological Exam
Neurological Exam: alert
Nicole Coma Scale
Eye Opening: Spontaneous
Verbal Response: Oriented
Motor Response: Obeys Commands
GCS Total Score: 15
Skin Exam
Skin Exam: normal color and warm/dry
Psychiatric Exam
Psychiatric Exam: normal mood/affect
Scores
Heart Failure Risk
Heart Failure Risk Score: Not Applicable
Course
Orders/Labs/Results
Orders:
Orders
10/27/25 12:04
EKG [Electrocardiogram (*1)] Urgent
Reason for Study: Shortness of Breath
EKG- Treatment ONCE
10/27/25 12:37
BNP [NT-proBNP] Urgent
Complete Blood Count/With Diff Urgent
Comprehensive Metabolic Panel Urgent
Troponin I Urgent
10/27/25 14:08
Cardiac Monitoring- Treatment ONCE
Nursing to Place Non Medication Order As Directed
Physician Order: ambulatory pulse ox
Above order entered?: Yes
CR Chest - 2 Views Urgent
Comment:
Reason For Exam: SOB
10/27/25 15:54
Furosemide [Lasix] 40 mg IV NOW STA
Abnormal Lab Results
10/27/25
12:37
RBC 3.88 L 10^6/uL
(4.20-5.40)
Hgb 9.5 L g/dL
(12.0-16.0)
Hct 30.4 L %
(37.0-47.0)
MCV 78.4 L fL
(81.0-99.0)
MCH 24.5 L pg
(27.0-31.0)
MCHC 31.3 L g/dL
(33.0-37.0)
RDW 16.2 H %
(11.5-14.5)
Abs Immat Gran (auto) 0.1 H 10^3/uL
(0-0.05)
Absolute Neuts (auto) 9.0 H 10^3/uL
(1.4-6.5)
Absolute Lymphs (auto) 0.6 L 10^3/uL
(1.2-3.4)
Neutrophils % 87.2 H %
(42.2-75.2)
Lymphocytes % 6.2 L %
(20.5-51.1)
Sodium 133 L mmol/L
(135-145)
Potassium 5.3 H mmol/L
(3.5-5.1)
Carbon Dioxide 21 L mmol/L
(22-30)
BUN 44 H mg/dl
(7-17)
Creatinine 1.3 H mg/dL
(0.6-1.0)
Glucose 252 H mg/dl
(70-99)
10/27/25 12:37
10/27/25 12:37
Vital Signs
Initial and Last Documented VS:
Initial Vital Signs
Temp Pulse Resp BP Pulse Ox
98.5 F 78 16 133/99 95
10/27/25 12:19 10/27/25 12:19 10/27/25 12:19 10/27/25 12:19 10/27/25 12:19
Last Documented Vital Signs
Temp Pulse Resp BP Pulse Ox
98.5 F 76 18 128/86 95
10/27/25 12:19 10/27/25 16:47 10/27/25 14:52 10/27/25 16:47 10/27/25 14:50
MDM/Problems Addressed
Differential Diagnosis Includes:
89yoF here with exertional dyspnea x several weeks. Pulse ox low at home today. Oxygen saturation 95% in triage. She is nontoxic-appearing. 1+ pitting edema to bilateral lower extremities noted on exam. No signs of respiratory distress.
Differential diagnosis includes but is not limited to: CHF exacerbation, viral illness, bronchitis, pneumonia, symptomatic anemia, less likely ACS
Initial ED plan: Workup initiated in triage. Creatinine 1.3 which is near baseline. Hemoglobin 9.4 which is also near baseline. BNP elevated at 4700. EKG shows normal sinus rhythm with nonspecific T wave changes and troponin WNL. Will check CXR
and ambulatory pulse ox.
*Pulse Oximetry
SaO2: 95
Oxygen Mode of Delivery: Room air
Patient hypoxic: no
*EKG
Interpreted by ED Provider?: Yes
EKG Intrepretation Date: 10/27/25
Heart Rate: 86
Rate: normal
Rhythm: sinus
Jackson: right axis deviation
Interval: normal interval
QRS Pattern: normal QRS
Ischemia: non-specific ST changes
*Critical Care Note
Total Time (30-74mins, 75-104mins- exclusive of procedures): Not Applicable
Update Note
Update Note:
Chest x-ray shows evidence of mild CHF. Oxygen saturation dropped to 87% with ambulation. 40 mg IV Lasix ordered. Will admit for further management.
ED Attending Note
-
Portions of this chart may have been created with voice recognition software.� Occasional wrong word or��sound alike� substitutions may have occurred due to the inherent limitations of voice recognition software.
Discharge Plan
Departure
Patient Disposition: Admit
Date of Disposition: 10/27/25
Time of Disposition: 16:26
Presentation/result/management discussed w/ accepting MD/DO: Hospitalist
Discharge Problem:
Acute exacerbation of CHF (congestive heart failure)
Prescriptions:
No Action
lovastatin 40 MG tablet
1 tab PO QPM
furosemide 20 MG tablet
20 mg PO DAILY
dofetilide 125 MCG capsule
125 mcg PO Q12
Xarelto 15 mg Tablet
15 mg PO QPM
insulin aspart U-100 [Novolog FlexPen U-100 Insulin] 100 unit/mL (3 mL) Insulin Pen
See Rx Instructions .ROUTE .COMPLEX Qty: 2 0RF
Rx Instructions:
Take 5 units with breakfast & lunch, take 3 units with dinner
insulin glargine [Lantus Solostar U-100 Insulin] 100 unit/mL (3 mL) Insulin Pen
12 unit SC HS Qty: 2 0RF
(DME) pen needle, diabetic [Maddie Pen Needle] 32 gauge x 5/32' Needle
Qty: 200 0RF
Rx Instructions:
1 box of 200 needles
refer to insulin instructions
spironolactone 25 MG tablet
12.5 mg PO DAILY Qty: 0 0RF
lisinopril 10 MG tablet
5 mg PO QPM Qty: 0 0RF
Referrals:
Rayne Medrano DO [Family Provider, Family Practice]
Interventions
Interventions:
*Risk Screen - Suicide Last Done: 10/27/25 12:19
*General Assessment Last Done: 10/27/25 14:50
*Neglect/Abuse Screening Last Done: 10/27/25 12:19
*ED COVID-19 Vaccine History Last Done: 10/27/25 14:50
*ED Influenza Vaccine History Last Done: 10/27/25 14:50
[facility] Fall Risk Assessment Tool Last Done: 10/27/25 14:50
ED- Cardiac Assessment Last Done: 10/27/25 14:50
ED- Pulmonary Assessment Last Done: 10/27/25 14:50
Discharge Date and Time
Print Language: PALESTINIAN
--- NOTE | 2025-10-27 16:39 | HPS.HSE ---
Addendum entered and electronically signed by Heather Saeed MD 10/27/25 17:36:
This is an addendum to the H&P written by Jeanne Morgan on 10/27/2025. �Patient seen and examined independently with DATA INTEGRITY CONSULTANT.
89-year-old female past medical history of atrial fibrillation, HFpEF, severe pulmonary hypertension, moderate mitral stenosis, CKD, type 2 diabetes, hypertension, mild to moderate mitral regurgitation, presenting with shortness of breath for 2
weeks with exertion. �Increased lower extremity ELLIOT. �Chronic cough. �No chest pain. �No weight gain.
Vital signs normal.
Labs show cardiac BNP 4700. �Troponin 0.026. �Potassium 5.3. �Blood sugar 252. �EKG shows normal sinus rhythm. �Chest x-ray shows mild congestive heart failure. �Recent echocardiogram showed hyperdynamic LV systolic function. �Indeterminate
diastolic function. �Moderate mitral valve stenosis. �Mild to moderate mitral regurgitation. �Severe pulmonary hypertension.
Patient with acute CHF exacerbation. �Hyperkalemia secondary to lisinopril/spironolactone. �IV Lasix, cardiology. �Hold lisinopril, spironolactone.
Original Note:
Family Physician
-
Family Physician: Rayne Medrano
Chief Complaint
-
sob
History of Present Illness
89yoF with a history of atrial fibrillation on Xarelto, CHF, hypertension, hyperlipidemia, insulin-dependent diabetes, and chronic anemia presenting for evaluation of shortness of breath for two weeks. sob is exertional. denied orthopnea. denied
chest pain, fever, chills, cough,congestion. she complained or worsening LE edema. denied abdominal pain,n,v,d. denied dysuria or hematuria.
Concern for mild CHF. Patient received dose of Lasix in ER. Admitted for further management
Medical History
Past Medical History
Past Medical History: Reports Other
Additional Past Medical History:
Hypertension, CKD, coronary artery disease, type 2 diabetes, neuropathy, mitral regurgitation, diastolic heart failure, paroxysmal A-fib, tremor, hyperlipidemia, thrombophilia, macular degeneration
Past Surgical History: Reports Other
Additional Past Surgical History:
Bilateral cataract surgery, cardioversion
Social History
Tobacco: Non-smoker
Alcohol: None
Drug: None
Family History
Family History: Not pertinent
Allergies / Home Medications
Allergies reflects when Allergies were last updated in [facility].
Home Medications with original date entered in [facility]
Allergy/Medication List:
Allergies
Allergy/AdvReac Type Severity Reaction Status Date / Time
No Known Allergies Allergy Verified 10/27/25 12:19
Home Medications
lovastatin 40 mg tablet 1 tab PO QPM High Cholesterol 02/11/12
furosemide 20 mg tablet 20 mg PO DAILY Fluid Retention/Swelling 01/27/18
dofetilide 125 mcg capsule 125 mcg PO Q12 Heart Disease/Condition 09/07/25
rivaroxaban 15 mg tablet (Xarelto) 15 mg PO QPM 09/07/25
insulin aspart U-100 100 unit/mL (3 mL) subcutaneous pen (Novolog FlexPen U-100 Insulin aspart) See Rx Instructions .Route .COMPLEX #2 ea 09/08/25
insulin glargine 100 unit/mL (3 mL) subcutaneous pen (Lantus Solostar U-100 Insulin) 12 unit (0.12 mL) SC HS #2 ea 09/08/25
lisinopril 10 mg tablet 5 mg (1/2 x 10 mg) PO QPM Blood Pressure #0 tabs 09/08/25
pen needle, diabetic 32 gauge x ' (Maddie Pen Needle) #200 ea 09/08/25
spironolactone 25 mg tablet 12.5 mg (1/2 x 25 mg) PO DAILY Blood Pressure #0 tabs 09/08/25
Review of Systems
-
Constitutional: Reports No Symptoms
EENT: Reports No Symptoms
Respiratory: Reports Trouble Breathing
Cardiac: Reports No Symptoms
Abdomen/GI: Reports No Symptoms
: Reports No Symptoms
Musculoskeletal: Reports Edema
Skin: Reports No Symptoms
Neurological: Reports No Symptoms
Endocrine: Reports No Symptoms
Hematologic/Lymphatic: Reports No Symptoms
Psych: Reports No Symptoms
Physical Exam
Vital Signs
Vital Signs
Temp Pulse Resp BP Pulse Ox
98.5 F 85 18 118/78 95
10/27/25 12:19 10/27/25 14:52 10/27/25 14:52 10/27/25 14:52 10/27/25 14:50
Physical Exam
General: Well Developed, Well Nourished and No Apparent Distress
HEENT: NormoCephalic, Moist mucous membranes and Atraumatic
Respiratory: Clear
Cardiac: S1/S2 and Regular Rhythm; No Murmur or Rub
GI: Soft, Non Tender, Non Distended and Normal Bowel Sounds; No Organomegaly
Rectal: Deferred by Provider
Musculoskeletal: No Clubbing, No Cyanosis and Other (Bilateral lower extremities edema)
Skin: No Rash
Neuro: AO x 3 and Nonfocal/grossly intact
Psych: Calm
Laboratory Results
-
10/27/25 12:37
10/27/25 12:37
Laboratory Results
Total Bilirubin 0.7 mg/dl (0.2-1.3) 10/27/25 12:37
AST 18 U/L (14-36) 10/27/25 12:37
ALT 17 U/L (0-35) 10/27/25 12:37
Alkaline Phosphatase 82 U/L (38-126) 10/27/25 12:37
Troponin I 0.026 ng/ml 10/27/25 12:37
Data Reviewed
-
Diagnostic Radiology: Report Reviewed by me
Lab Data: Labs Reviewed by me
Impression/Plan
-
#Exertional dyspnea/acute hypoxia concern for CHF
- BNP 4700
- Chest x-ray mild CHF
- 40 of IV Lasix in ER
-Lasix continued
-held spironolactone.
- recent ECHO (09/07) with EF of 70-75
- Cardiology consulted
#Anemia of chronic disease
- Hemoglobin stable at 9.5, no active bleeding
- Continue to monitor
# Hyponatremia/hyperkalemia likely from fluid overload
# CKD stage IIIb
- Sodium 133, K5.3 creatinine 1.3
- IV diuretics, fluid restriction
- BMP in the morning
#Paroxysmal Atrial fibrillation
- continue Tikosyn, Xarelto
-EKg with NSR
#Essential hypertension
- hold lisinopril due to hyperkalemia
# Type 2 diabetes
- Aspart continued, glargine continued
- CHO diet
-sliding scale
#Mild to moderate mitral regurgitation
#Hyperlipidemia
- Continue statin
DVT prophylaxis�Xarelto
DNR
[2025-10-27] MEDS: LASIX 40 MG IV (16:47)
[2025-10-27 18:28] LABS: Glucose - Point of Care 177 mg/dl (70-99)
[2025-10-27] MEDS: NOVOLOG FLEXPEN 3 UNITS SC (18:58)
[2025-10-27] MEDS: NOVOLOG FLEXPEN-LOW RESISTANCE 1 UNITS SC (18:58)
--- NOTE | 2025-10-27 19:30 | PTCARENOTE ---
Addendum entered by Doreen Grullon RN 10/28/25 02:12:
Patient takes 9 unit of Lantus at home. currently 12 unit ordered. House provider made aware. will continue to monitor for now.
Original Note:
Rec'd patient from ER. AAOx3. stable vitals SR in the 70's to 90's. Denies any pain or sob at this time. Room air sat 96%. Steady gait. POC reviewed with patient.
[2025-10-27] MEDS: LIPITOR 10 MG PO (20:40)
[2025-10-27] MEDS: TIKOSYN 125 MCG PO (20:40)
[2025-10-27] MEDS: XARELTO 15 MG PO (20:40)
[2025-10-27] MEDS: LANTUS 0.12 UNITS SC (22:00)
[2025-10-27 22:08] LABS: Glucose - Point of Care 180 mg/dl (70-99)
[2025-10-28] VITALS (7 sets, daily range): BP systolic 94–117; BP diastolic 57–70; PULSE 78; O2SAT 97; BMI 24.5
[2025-10-28 03:59] LABS: Glucose - Point of Care 89 mg/dl (70-99)
[2025-10-28 08:20] LABS: Hematocrit 28.7 % (37.0-47.0); Hemoglobin 9.1 g/dL (12.0-16.0); Mean Corp Hgb Conc. 31.7 g/dL (33.0-37.0); Mean Corpuscular Volume 76.9 fL (81.0-99.0); Platelet Count 342 10^3/uL (130-400); Red Cell Dist. Width 16.1 % (11.5-14.5)
[2025-10-28 08:48] LABS: Blood Urea Nitrogen 42 mg/dl (7-17); Calcium 9.5 mg/dl (8.4-10.2); Carbon Dioxide 23 mmol/L (22-30); Chloride 104 mmol/L (98-107); Estimated Creatinine Clearance 26 ml/min; Glucose 97 mg/dl (70-99); HDL Cholesterol 68 mg/dl; LDL Cholesterol, Calculated 39 mg/dl; Magnesium 1.8 mg/dl (1.6-2.3); Potassium 4.7 mmol/L (3.5-5.1); Sodium 134 mmol/L (135-145); Very Low Density Lipoprotein 13 mg/dl (0-30); eGFR 39.55
--- NOTE | 2025-10-28 08:51 | W.PN.HOSP.TC ---
Today's Communication/Plan
-
see bold
Assessment / Plan
Assessment / Plan
HPI: 89-year-old female past medical history of atrial fibrillation, HFpEF, severe pulmonary hypertension, moderate mitral stenosis, CKD, type 2 diabetes, hypertension, mild to moderate mitral regurgitation, presenting with shortness of breath for 2
weeks with exertion. �Increased lower extremity ELLIOT. �Chronic cough. �No chest pain. �No weight gain.
Labs show cardiac BNP 4700. �Troponin 0.026. �Potassium 5.3. �Blood sugar 252. �EKG shows normal sinus rhythm. �Chest x-ray shows mild congestive heart failure. �Recent echocardiogram showed hyperdynamic LV systolic function. �Indeterminate
diastolic function. �Moderate mitral valve stenosis. �Mild to moderate mitral regurgitation. �Severe pulmonary hypertension.
Patient with acute CHF exacerbation. �Hyperkalemia secondary to lisinopril/spironolactone. �IV Lasix, cardiology. �Hold lisinopril, spironolactone.
#Exertional dyspnea concerning for acute heart failure with preserved ejection fraction
BNP 4720. Chest x-ray mild CHF
Holding spironolactone and lisinopril secondary to hyperkalemia
Cardiology consulted, continue IV Lasix, trend creatinine, trend daily weights
#Hyperkalemia
Hold spironolactone, lisinopril
Resolved
#Hyponatremia
Monitor
#Anemia of chronic disease
Monitor
#Paroxysmal Atrial fibrillation
Currently in normal sinus rhythm
Continue Tikosyn, Xarelto
# Type 2 diabetes
Hemoglobin A1c controlled at 7.6
Continue aspart and glargine, sliding scale insulin
#Mild to moderate mitral regurgitation
#Hyperlipidemia
Continue statin
DVT prophylaxis�Xarelto
DNR
Updated daughters at bedside 10/28
Total time spent to see the patient on the floor, examine the patient, review data and lab results, discuss treatment plan with patient, nursing staff around 37 minutes.
Physical Exam
General: No acute distress
HEENT: Normocephalic, Atraumatic, EOMI, MMM
Respiratory: Clear to Auscultation bilaterally
Cardiac: Normal S1/S2, Regular Rate and Rhythm
GI: Soft, Nontender, Nondistended, Normal Bowel Sounds
Extremities: No Clubbing, Cyanosis
Mild bilateral lower extremity edema
Neuro: Nonfocal/Grossly Intact
Anticipated Discharge: Within 24 hours
Subjective/Interval History
-
Date of Service: October 28, 2025
Patient denies shortness of breath at rest. She does report dyspnea with activity. Denies chest pain. No fever, no vomiting.
Objective Data
-
Labs:
Laboratory Results
10/28/25
07:57
WBC 9.4
Hgb 9.1 L
Hct 28.7 L
Plt Count 342
Sodium 134 L
Potassium 4.7
Chloride 104
Carbon Dioxide 23
BUN 42 H
Creatinine 1.3 H
Glucose 97
Calcium 9.5
Vital Signs:
Vital Signs
Temp Pulse Resp BP Pulse Ox
97.8 F 80 16 94/60 94
10/28/25 03:11 10/28/25 03:11 10/28/25 03:11 10/28/25 03:11 10/28/25 03:11
I&O
10/27/25 10/28/25 10/29/25
06:59 06:59 06:59
Intake Total 250 / 250
Output Total 800 / 800
Balance -550 / -550
[2025-10-28 08:55] LABS: Glucose - Point of Care 110 mg/dl (70-99)
[2025-10-28] MEDS: NOVOLOG FLEXPEN 5 UNITS SC ×2 (08:55→12:18)
[2025-10-28] MEDS: NOVOLOG FLEXPEN-LOW RESISTANCE SC ×2 (08:56→17:32)
[2025-10-28] MEDS: LASIX 40 MG IV ×2 (08:56→17:33)
[2025-10-28] MEDS: TIKOSYN 125 MCG PO ×2 (08:56→20:17)
--- NOTE | 2025-10-28 10:39 | CM ---
Patient seen at bedside with 2 of her 5 children present. Patient playing card game with daughters. Patient stated she lives in an apartment with son living next door. Patient has a cane at home but does not use it. Patient stated that she has had
[facility] in the past but they were not able to come because she was not home bound. Patient daughters stated patient plays [employer] and goes out a great deal. Patient PCP is Dr. Medrano and she uses the [facility]. Patient plan is home with no needs.
CM will continue to follow for discharge planning needs.
Plan; home with no needs.
[2025-10-28 11:25] LABS: Glycohemoglobin (HgbA1c) 7.6 % (4.0-5.9)
[2025-10-28 12:01] LABS: Glucose - Point of Care 196 mg/dl (70-99)
[2025-10-28] MEDS: NOVOLOG FLEXPEN-LOW RESISTANCE 1 UNITS SC (12:19)
--- NOTE | 2025-10-28 15:17 | CON.CAR ---
Addendum entered and electronically signed by Otto Salazar MD 10/28/25 17:42:
I saw and examined the patient independently and performed majority of MDM.
The SHREDDING SPECIALIST's note was reviewed and I agree with the note with changes/additions below.
Comment: 89 yo female with PMH of chronic HFPEF, paroxysmal A fib on xarelto, is admitted with SOB, edema. Exam with RRR, II/ systolic murmur at apex, 1+ LE edema. Cr 1.3. Tele: NSR, brief A fib.
Acute on chronic HFPEF. Severe, requiring hospitalization for IV diuresis, and monitoring of labs/tele. Give additional dose of IV lasix now. Follow up Cr in AM.
Paroxysmal A fib. In sinus mostly. Continue tikosyn 125mcg bid, and xarelto 15mg daily.
Original Note:
Consultation
Consultation Request
Date/Time Consultation Requested: 10/28/25 0854
Date/Time Consultation Performed: 10/28/25 1520
Requesting Provider: Dr. Castañeda
Performing Provider: Cait OBRIEN for Dr. Salazar
Reason for Consultation: SOB
Medical History
-
Chief Complaint: SOB
History of Present Illness:
89 y/o female (patient of Dr. Hughes) with HFpEF, AFIB on Tikosyn and Xarelto, hypertension, DM2, mild to moderate mitral regurgitation and stenosis, dilated ascending aorta (not on BB due to bradycardia per OP notes), and CKD3B. She was
hospitalized 09/07/25 after she came in with AFIB with RVR and is s/p CV to SR. She was also briefly diuresed for CHF exacerbation, but sent home on her typical dosing. She is here since she has had MOSLEY for a few weeks, which progressed. She thinks
weight went from 140 to 143 lbs and had increased BLE edema. BNP 4760. She is being diuresed with IV lasix. She was noted to be hyperkalemic and ACEI and MRA held. Daughter Salma is at bedside. Patient feeling improved.
Past Medical History
Past Medical History: Arrhythmias, CHF, HTN, NIDDM, Valvular Disease and Other (as above)
Social History
Tobacco: Non-Smoker
Family History
Family History: Reviewed & Not Pertinent
Allergies / Home Medications
Allergy/AdvReac Type Severity Reaction Status Date / Time
No Known Allergies Allergy Verified 10/27/25 12:19
�Medication �Instructions �Recorded �Confirmed �Type
lovastatin 40 mg tablet 1 tab PO QPM High Cholesterol 02/11/12 10/27/25 History
furosemide 20 mg tablet 20 mg PO DAILY Fluid 01/27/18 10/27/25 History
Retention/Swelling
dofetilide 125 mcg capsule 125 mcg PO Q12 Heart 09/07/25 10/27/25 History
Disease/Condition
rivaroxaban 15 mg tablet (Xarelto) 15 mg PO QPM 09/07/25 10/27/25 History
insulin aspart U-100 100 unit/mL See Rx Instructions .Route 09/08/25 10/27/25 Rx
(3 mL) subcutaneous pen (Novolog .COMPLEX #2 ea
FlexPen U-100 Insulin aspart)
lisinopril 10 mg tablet 5 mg (1/2 x 10 mg) PO QPM Blood 09/08/25 10/27/25 Rx
Pressure #0 tabs
pen needle, diabetic 32 gauge x #200 ea 09/08/25 Rx
5/32' (Maddie Pen Needle)
spironolactone 25 mg tablet 12.5 mg (1/2 x 25 mg) PO DAILY 09/08/25 10/27/25 Rx
Blood Pressure #0 tabs
insulin glargine 100 unit/mL (3 9 unit SC HS 10/27/25 10/27/25 History
mL) subcutaneous pen (Lantus
Solostar U-100 Insulin)
Review of Systems
-
History Source: Patient
All other systems: Negative unless noted
Constitutional: Weight Gain (minimal)
Respiratory: Trouble Breathing
Musculoskeletal: Edema
Physical Exam
Vital Signs
Temp Pulse Resp BP Pulse Ox
97.6 F 78 16 100/57 97
10/28/25 11:13 10/28/25 11:13 10/28/25 11:13 10/28/25 11:13 10/28/25 11:13
Lab Results
10/28/25 07:57
10/28/25 07:57
Troponin I 0.026 ng/ml 10/27/25 12:37
[id number] Pept 4720 pg/ml 10/27/25 12:37
Physical Exam
General: Well Developed, Well Nourished and No Apparent Distress
HEENT: Normocephalic and Anicteric
Respiratory: Clear
Cardiac: Regular Rhythm and Peripheral Edema (mild BLE edema)
Musculoskeletal: Edema
Skin: Warm and Dry
Neuro: AO x 3
Psych: Calm
Impression / Plan
-
[id number] HFpEF: improving - patient felt better walking with PT today and reports good output with Lasix
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 PASP estimated at least 85 mmHg.
-agree with IV diuresis, which requires intensive monitoring- I will give another dose this afternoon. I believe she is close to being euvolemic. Likely transition to higher dose PO Lasix tomorrow.
-SGLT2I has not been added due to report of hypoglycemia. Will add back MRA now that potassium normal. Monitor.
AFIB:
-paroxysmal
-stable in SR
-continue dofetilide and Xarelto
HTN:
-stable
-ACEI and MRA held for hyperkalemia and BP remains stable
Hyperkalemia:
-resolved
-ACEI and MRA held as above
DM2:
-on insulin
-per primary team
Data Reviewed
-
EKG: Tracing Personally Visualized and interpreted (NSR 86 BPM, NS T abnormality)
Radiology: Report Reviewed by me (CXR: Mild congestive heart failure.)
Medical Tests (Nuc Med, Echo etc): Report Reviewed by me (echo as noted )
Labs: Labs Reviewed by me
[2025-10-28 17:05] LABS: Glucose - Point of Care 111 mg/dl (70-99)
[2025-10-28] MEDS: XARELTO 15 MG PO (17:32)
[2025-10-28] MEDS: ALDACTONE 12.5 MG PO (17:33)
[2025-10-28] MEDS: LIPITOR 10 MG PO (17:33)
[2025-10-28] MEDS: NOVOLOG FLEXPEN 3 UNITS SC (17:36)
[2025-10-28 21:33] LABS: Glucose - Point of Care 195 mg/dl (70-99)
[2025-10-28] MEDS: LANTUS 0.09 UNITS SC (21:56)
[2025-10-29 03:01] VITALS: BP 116/64
[2025-10-29 06:00] VITALS: BMI 23.9
[2025-10-29 07:00] VITALS: BP 102/68
--- NOTE | 2025-10-29 07:40 | W.PN.HOSP.TC ---
Today's Communication/Plan
-
Cleared by cardiology for discharge today
Assessment / Plan
Assessment / Plan
HPI: 89-year-old female past medical history of atrial fibrillation, HFpEF, severe pulmonary hypertension, moderate mitral stenosis, CKD, type 2 diabetes, hypertension, mild to moderate mitral regurgitation, presenting with shortness of breath for 2
weeks with exertion. �Increased lower extremity ELLIOT. �Chronic cough. �No chest pain. �No weight gain.
Labs show cardiac BNP 4700. �Troponin 0.026. �Potassium 5.3. �Blood sugar 252. �EKG shows normal sinus rhythm. �Chest x-ray shows mild congestive heart failure. �Recent echocardiogram showed hyperdynamic LV systolic function. �Indeterminate
diastolic function. �Moderate mitral valve stenosis. �Mild to moderate mitral regurgitation. �Severe pulmonary hypertension.
Patient with acute CHF exacerbation. �Hyperkalemia secondary to lisinopril/spironolactone. �IV Lasix, cardiology. �Hold lisinopril, spironolactone.
#Exertional dyspnea concerning for acute heart failure with preserved ejection fraction
BNP 4720. Chest x-ray mild CHF
Held spironolactone and lisinopril secondary to hyperkalemia
Seen by cardiology, dyspnea with activity resolved with IV Lasix
Medically stable and cleared by cardiology for discharge on Lasix 40 mg daily, increased from her previous dose of 20 mg daily
Cardiology recommends resuming Aldactone 12.5 mg daily, and discontinuing lisinopril upon discharge secondary to soft blood pressure
PT recommends outpatient PT, prescription provided
#Hyperkalemia
Resolved
#Stage IV CKD
Creatinine at baseline
#Hyponatremia
Monitor
#Anemia of chronic disease
Monitor
#Paroxysmal Atrial fibrillation
Currently in normal sinus rhythm
Continue Tikosyn, Xarelto
# Type 2 diabetes
Hemoglobin A1c controlled at 7.6
Continue aspart and glargine, sliding scale insulin
#Mild to moderate mitral regurgitation
#Hyperlipidemia
Continue statin
DVT prophylaxis�Xarelto
DNR
Updated daughters at bedside 10/28
Total time spent to see the patient on the floor, examine the patient, review data and lab results, discuss treatment plan with patient, nursing staff around 37 minutes.
Physical Exam
General: No acute distress
HEENT: Normocephalic, Atraumatic, EOMI, MMM
Respiratory: Clear to Auscultation bilaterally
Cardiac: Normal S1/S2, Regular Rate and Rhythm
GI: Soft, Nontender, Nondistended, Normal Bowel Sounds
Extremities: No Clubbing, Cyanosis
+Bilateral lower extremity edema
Neuro: Nonfocal/Grossly Intact
Anticipated Discharge: Today
Subjective/Interval History
-
Date of Service: October 29, 2025
Patient worked with physical therapy yesterday. She denies dyspnea with ambulating around the hallways. She was labored while walking up steps. Denies chest pain, denies shortness of breath. No fever, no vomiting.
Objective Data
-
Labs:
Laboratory Results
10/29/25
06:15
Sodium Pending
Potassium Pending
Chloride Pending
Carbon Dioxide Pending
BUN Pending
Creatinine Pending
Glucose Pending
Calcium Pending
Vital Signs:
Vital Signs
Temp Pulse Resp BP Pulse Ox
98.3 F 75 18 116/64 97
10/29/25 03:01 10/29/25 03:01 10/29/25 03:01 10/29/25 03:01 10/29/25 03:01
I&O
10/28/25 10/29/25 10/30/25
06:59 06:59 06:59
Intake Total 250 / 250 780 / 780
Output Total 800 / 800
Balance -550 / -550 780 / 780
[2025-10-29 08:00] LABS: Blood Urea Nitrogen 39 mg/dl (7-17); Calcium 9.2 mg/dl (8.4-10.2); Carbon Dioxide 24 mmol/L (22-30); Chloride 102 mmol/L (98-107); Estimated Creatinine Clearance 26 ml/min; Glucose 86 mg/dl (70-99); Potassium 4.2 mmol/L (3.5-5.1); Sodium 135 mmol/L (135-145); eGFR 39.55
[2025-10-29 08:17] LABS: Glucose - Point of Care 108 mg/dl (70-99)
[2025-10-29] MEDS: NOVOLOG FLEXPEN-LOW RESISTANCE SC (08:34)
[2025-10-29] MEDS: TIKOSYN 125 MCG PO (08:41)
[2025-10-29] MEDS: ALDACTONE 12.5 MG PO (08:42)
[2025-10-29] MEDS: LASIX 40 MG IV (08:42)
[2025-10-29] MEDS: NOVOLOG FLEXPEN 5 UNITS SC ×2 (08:43→12:18)
[2025-10-29 11:00] VITALS: BP 107/61
--- NOTE | 2025-10-29 11:03 | W.DCSUMMARY ---
Discharge Summary
Discharge Data
Date of Admission: 10/27/25
Date of Discharge: 10/29/25
-
Pending Results: No
Hospital Course
Discharge diagnosis:
Acute heart failure with a preserved ejection fraction
Exertional dyspnea
Hypokalemia
Soft blood pressure
Stage IV chronic kidney disease
Hyponatremia
Anemia of chronic disease
Paroxysmal atrial fibrillation
Type 2 diabetes
Mild to moderate mitral regurgitation
Hyperlipidemia
Consults: Cardiology
Chest x-ray:
Mild congestive heart failure.
Hospital course:
89-year-old female with a past medical history of atrial fibrillation on Xarelto, CHF, CKD, and diabetes who was admitted for acute on chronic heart failure with a preserved ejection fraction. Patient was seen in conjunction with cardiology. She
was diuresed with IV Lasix.
Patient was found to have hyperkalemia upon admission, potassium was 5.3. Her Aldactone and lisinopril were held. Her potassium normalized.
After several days, her dyspnea with activity resolved. She ambulated with PT without any dyspnea. PT recommends outpatient PT, prescription provided.
Patient's blood pressure in the hospital was soft. Cardiology recommends staying off of lisinopril upon discharge, but resuming Aldactone 12.5 mg daily for heart failure.
Patient diuresed well. She is medically stable for discharge. Cardiology recommends discharge on Lasix 40 mg p.o. daily, which is increased from her previous dose of 20 mg p.o. daily. She needs to follow-up with her PCP in 1 week, and cardiology
in the office in 2-3 weeks.
Disposition: Home self-care
Discharge planning: Required 37 minutes
Discharge Plan
-
Patient Disposition: Home (Routine Discharge)
Discharge Diagnosis/Procedures: Acute heart failure, high potassium, chronic kidney disease
Condition: Good
Diet: Low Fat, Low Cholesterol and Diabetic, Carb Controlled
Activity: As tolerated
Blood Work: BMP
Activity Restrictions/Additional Instructions:
Cardiology recommends stopping lisinopril secondary to low blood pressure in the hospital.
Cardiology increased your Lasix to 40 mg daily.
Please follow-up with your PCP in 1 week, and cardiology in the office in 2-3 weeks.
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
Referrals:
Rayne Medrano DO [Family Provider, Family Practice] - in one week
Prescriptions:
New
furosemide [Lasix] 40 mg tablet
40 mg PO DAILY Qty: 30 0RF
Continued
lovastatin 40 MG tablet
1 tab PO QPM
dofetilide 125 MCG capsule
125 mcg PO Q12
Xarelto 15 mg Tablet
15 mg PO QPM
insulin aspart U-100 [Novolog FlexPen U-100 Insulin] 100 unit/mL (3 mL) Insulin Pen
See Rx Instructions .ROUTE .COMPLEX Qty: 2 0RF
Rx Instructions:
Take 5 units with breakfast & lunch, take 3 units with dinner
(DME) pen needle, diabetic [Maddie Pen Needle] 32 gauge x 5/32' Needle
Qty: 200 0RF
Rx Instructions:
1 box of 200 needles
refer to insulin instructions
spironolactone 25 MG tablet
12.5 mg PO DAILY Qty: 0 0RF
insulin glargine [Lantus Solostar U-100 Insulin] 100 unit/mL (3 mL) Insulin Pen
9 unit SC HS
Discontinued
furosemide 20 MG tablet
20 mg PO DAILY
lisinopril 10 MG tablet
5 mg PO QPM Qty: 0 0RF
Discharge Orders:
Discharge Patient (As Directed); Ordered 10/29/25
Ordered By: Pio Castañeda
Discharge Date and Time
Discharge Date/Time: 10/29/25 13:18
Print Language: ISRAELI
--- NOTE | 2025-10-29 12:01 | CM ---
Patient has been medically cleared for discharge to home with no additional skilled services. Patient's daughter will transport home.
--- NOTE | 2025-10-29 12:07 | W.PN.CD ---
Today's Communication / Plan
-
discharge regimen will be lasix 40mg daily, aldactone 125mg daily
lisinopril held on d/c for low BP and hyperkalemia on admission
-given HF, we resumed low dose aldactone
BMP one week
we will call patient for follow up
Impression / Plan
-
Qnxat-es-sygezmk HFpEF: improved s/p IV lasix
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 PASP estimated at least 85 mmHg.
-SGLT2I has not been added due to report of hypoglycemia. Added back MRA now that potassium normal, and lisinopril also stopped due to lower BP
-discharge regimen will be lasix 40mg daily, aldactone 125mg daily
-BMP one week
AFIB:
-paroxysmal
-stable in SR with PAC's
-continue dofetilide and Xarelto
HTN:
-stable
-lisinopril held on d/c for low BP and hyperkalemia on admission
-given HF, we resumed low dose aldactone
Hyperkalemia:
-resolved
DM2:
-on insulin
-per primary team
Physical Exam
Vital Signs/Labs
Vital Signs
Temp Pulse Resp BP Pulse Ox
97.5 F 81 16 107/61 96
10/29/25 11:00 10/29/25 11:00 10/29/25 11:00 10/29/25 11:00 10/29/25 11:00
10/28/25 10/29/25 10/30/25
06:59 06:59 06:59
Actual Weight 64.609 kg 63.191 kg
10/28/25 07:57
10/29/25 06:15
Magnesium 1.8 mg/dl (1.6-2.3) 10/28/25 07:57
Triglycerides 68 mg/dl (10-149) 10/28/25 07:57
LDL Cholesterol, Calc 39 mg/dl 10/28/25 07:57
VLDL Cholesterol, Calc 13 mg/dl (0-30) 10/28/25 07:57
HDL Cholesterol 68 mg/dl 10/28/25 07:57
10/27/25
12:37
[id number] Pept 4720
LAB Results
10/27/25
12:37
Troponin I 0.026
Physical Exam
Constitutional: No acute distress and Comfortable
EENT: Moist mucous membranes
Cardiovascular: Rhythm & rate is regular, JVD pressure is normal, Systolic murmur absent and Pedal edema present
Respiratory: Respiratory effort normal and Lungs clear to auscul.
Neuro/Psych: AO x 3
Data Reviewed
-
Date of Service: October 29, 2025
EKG: Other (Tele: SR with PAC's)
Labs: Labs Reviewed by me
[2025-10-29 12:18] LABS: Glucose - Point of Care 183 mg/dl (70-99)
[2025-10-29] MEDS: NOVOLOG FLEXPEN-LOW RESISTANCE 1 UNITS SC (12:18)
== END 2025-10-29 13:18 | disposition home or self-care (01) | DRG 291 ==
LOC: 2 NORTH 17:20
PROVIDERS: Emergency Medicine; Registered Nurse; ADMITTING PHYSICIAN Hospitalist; ATTENDING PHYSICIAN Family Medicine; CONSULT PHYSICIAN Internal Medicine; EMERGENCY PHYSICIAN Emergency Medicine; FAMILY PHYSICIAN Family Medicine
DX: I13.0 Hypertensive heart and chronic kidney disease with heart failure and stage 1 through stage 4 chronic kidney disease, or unspecified chronic kidney disease (principal); I50.33 Acute on chronic diastolic (congestive) heart failure; N18.4 Chronic kidney disease, stage 4 (severe); E87.1 Hypo-osmolality and hyponatremia; E87.5 Hyperkalemia; T46.4X5A Adverse effect of angiotensin-converting-enzyme inhibitors, initial encounter; I48.0 Paroxysmal atrial fibrillation; E11.40 Type 2 diabetes mellitus with diabetic neuropathy, unspecified; E11.22 Type 2 diabetes mellitus with diabetic chronic kidney disease; I27.20 Pulmonary hypertension, unspecified; Z66 Do not resuscitate; E87.6 Hypokalemia; D63.1 Anemia in chronic kidney disease; I34.0 Nonrheumatic mitral (valve) insufficiency; Z79.01 Long term (current) use of anticoagulants; Z79.4 Long term (current) use of insulin; Z79.899 Other long term (current) drug therapy
CPT/HCPCS: 71046; 80048; 80053; 80061; 82962; 83036; 83735; 83880; 84443; 84484; 85025; 85027; 93005; 96374; 97163; 99285

== ENCOUNTER → 2025-11-03 13:05 | Outpatient (REF) | payer MEDICARE, SELFPAY ==
[2025-11-03 14:24] LABS: Blood Urea Nitrogen 35 mg/dl (7-17); Calcium 10.0 mg/dl (8.4-10.2); Carbon Dioxide 26 mmol/L (22-30); Chloride 98 mmol/L (98-107); Glucose 155 mg/dl (70-99); Potassium 4.9 mmol/L (3.5-5.1); Sodium 134 mmol/L (135-145); eGFR 36.19
== END ==
LOC: REG 13:05
PROVIDERS: ATTENDING PHYSICIAN Family Medicine; REFERRING PHYSICIAN Internal Medicine
DX: E83.52 Hypercalcemia (principal)
CPT/HCPCS: 36415; 80048